=== PATIENT | female | born 1970 | race Caucasian/White ===

== ENCOUNTER 2016-11-29 19:15 | Inpatient (IN) ==
[2016-11-29] MEDS ORDERED: 0.9 % Sodium Chloride 1,000 ML IVC ONE ×2 (19:40→20:42)
[2016-11-29] MEDS ORDERED: Pantoprazole 40 MG VIAL IVP ONE (19:40)
[2016-11-29] MEDS ORDERED: *HR* Morphine 2 MG/ML SYRINGE IVP ONE (19:40)
[2016-11-29] MEDS ORDERED: Ondansetron 4 MG/2 ML VIAL IVP ONE (19:40)
--- NOTE | 2016-11-29 19:43 | Emergency Department Note ---
Disposition Clinical Impression: Colitis, GI bleed due to NSAIDs, Hypokalemia Disposition: Admitted As Inpatient Condition: Fair Referrals: Unassigned,Provider [Non-Partnered Physician] - Forms: Work/School Release, ED Satisfaction Letter Time of Disposition: 21:29 Abdominal Pain HPI - General Chief Complaint: ED General Medical Stated Complaint: "sick" Time Seen by Provider: 11/29/16 19:23 Source: patient Limitations: no limitations Nursing Notes Reviewed: Yes Vital Signs Reviewed: Yes - History of Present Illness HPI Narrative: 46yof c/o abd pain and n/v for 1 week also with BRBPR and has been taking increased NSAIDS lately meloxicam for arthritis. Patient states that she has 4 out of 10 cramping pain in her lower abdomen. She denies surgical history besides a section, states that she has no history of IBD or IBS. Patient states that after taking NSAIDs for the last week she has noted more red blood in her stool, and multiple episodes of loose stools including 11 movements today with loose stool. Patient denies any chest pain or shortness of breath, denies weight changes. Pt Subjective Complaint: abdominal pain Onset (ago): hour(s) Consistency: constant Location: periumbilical, LLQ, RLQ Pain Severity: moderate Pain Scale: 6 Quality: aching Radiation: none Migration to: no migration Worsens with: nothing Associated symptoms: Reports: nausea, diarrhea, hematochezia (BRBPR). Denies: fever, melena, hematuria Treatments prior to arrival: none - Related Data Allergies Allergy/AdvReac Type Severity Reaction Status Date / Time codeine Allergy See Verified 11/29/16 19:17 Comments meloxicam Allergy See Verified 11/29/16 19:17 Comments All systems ED: reviewed and negative except as stated. Review of Systems: As Per HPI Constitutional: Denies: fever, chills Eyes: Denies: eye pain ENT ED: Denies: ear pain Cardiovascular: Denies: chest pain Respiratory: Denies: cough Gastrointestinal: Reports: as per HPI, abdominal pain, nausea, hematochezia. Denies: vomiting Genitourinary: Denies: urgency Musculoskeletal: Denies: back pain Integumentary: Denies: rash Neurological: Denies: headache Psychiatric: Reports: anxiety Abdominal Pain PMH - Past Medical History Medical history: Reports: other Female Surgical History: Reports: Adenoidectomy, Tonsillectomy, other Psychiatric history: Reports: no psych history - Social History Smoking status: Never smoker Alcohol use: Reports: none Drug use: Reports: none Physical Exam Constitutional: NAD, vital signs reviewed and wnl Eyes: PERRLA, sclera anicteric Neck: normal inspection, neck is supple Resp: CTA bilaterally, no resp distress CV: RRR, no m/g/r GI: normal inspection, soft, abd ttp moderate, suprapubic ttp no rebound or guarding Back: normal inspection, no tenderness to palpation Neuro: A&O3, CNII-XII grossly intact MSK: no gross deformities, normal ROM UE and LE Skin: on limited exam, skin intact with no rashes or lesions - General Limitations: no limitations General appearance: alert, in no apparent distress Course Course Narrative: 46yof with abd pain and n/v him a workup ordered with CT with IV contrast, basic lab work type and screen CBC BMP hepatic panel lipase. 2 L IVF normal saline. - Reevaluation(s) Reevaluation #1: CT scan shows evidence of diffuse colitis, infectious versus inflammatory, patient with mild tachycardia still will give additional liter of fluid, otherwise has no SIRS symptoms, for that reason blood cultures and lactate were not drawn, I did start her empirically on Flagyl and ciprofloxacin. Admitted to Dr. Catherine in stable condition. Time: 21:25 Vital Signs Temperature 98.2 F 11/29/16 19:18 Pulse Rate 138 11/29/16 19:18 Respiratory Rate 16 11/29/16 19:18 Blood Pressure 140/74 11/29/16 19:18 O2 Sat by Pulse Oximetry 99 11/29/16 19:18 Temperature 98.2 F 11/29/16 19:18 Pulse Rate 117 11/29/16 20:13 Respiratory Rate 18 11/29/16 20:13 Blood Pressure 113/61 11/29/16 20:13 O2 Sat by Pulse Oximetry 100 11/29/16 20:13 Oxygen Delivery Oxygen Delivery Room Air Abdominal Pain - MDM Narrative Medical decision making narrative: 46-year-old female with GI bleed, diffuse colitis, started empirically on antibiotics, admitted to medicine service for further workup. Stable at the time of ed disposition resting comfortably all questions answered Dr Catherine accepting. - Differential Diagnosis Differential Diagnosis: Likely: abdominal pain non-specific, diverticulitis, diverticulosis, gastroenteritis, pancreatitis - Medical Records Medical records reviewed: Yes I reviewed the patient's medical records. - Lab Data Lab results reviewed: Yes I reviewed the patient's lab results. Result diagrams: 11/29/16 19:49 11/29/16 19:49 Lab Results 11/29/16 11/29/16 11/29/16 Range/Units 19:44 19:49 19:49 WBC 10.4 (4.3-11.1) K/mcL RBC 4.70 (3.82-4.97) M/mcL Hgb 13.7 (11.5-15.4) g/dL Hct 40.3 (35.3-44.9) % MCV 85.7 (83.0-100.0) fL MCH 29.1 (28.0-33.3) pg MCHC 34.0 (31.6-35.5) g/dL RDW 11.9 (11.5-14.5) % Plt Count 326 (140-400) K/mcL MPV 10.8 (9.4-12.4) fL Immature Gran % 0.5 (0-4) % Seg Neutrophils % 66.7 % Lymphocytes % 18.2 % Monocytes % 10.5 % Eosinophils % 3.8 % Basophils % 0.3 % Neutrophils # 6.9 (1.6-8.9) K/mcL Lymphocytes # 1.9 (0.6-4.6) K/mcL Monocytes # 1.1 (0.0-1.3) K/mcL Eosinophils # 0.4 (0.0-0.6) K/mcL Basophils # 0.0 (0.0-0.2) K/mcL Sodium (136-145) mEq/L Potassium (3.5-4.5) mEq/L Chloride (98-109) mEq/L Carbon Dioxide (19-29) mEq/L BUN (7-20) mg/dL Creatinine (0.57-1.11) mg/dL Est GFR ( Amer) (> 60) Est GFR (Non-Af Amer) (> 60) BUN/Creatinine Ratio (6-26) Glucose (70-99) mg/dL Calculated Osmolality (280-300) Calcium (8.6-10.8) mg/dL Total Bilirubin (0.2-1.2) mg/dL Direct Bilirubin (0.0-0.5) mg/dL Indirect Bilirubin (0.0-1.2) mg/dL AST (5-34) Units/L ALT (0-55) Units/L Alkaline Phosphatase (38-126) Units/L Serum Total Protein (6.0-8.3) g/dL Albumin (3.5-5.0) g/dL Globulin (2.4-3.5) g/dL Albumin/Globulin Ratio (1.1-2.2) Amylase (25-125) Units/L Lipase (8-78) Units/L Urine Color Dark Yellow (Yellow) Urine Clarity Turbid A (Clear) Urine pH 6.5 (5.0-8.0) pH Units Ur Specific Howell 1.020 (1.010-1.025) Urine Protein 30 H (Neg-Trace) mg/dL Urine Glucose (UA) Normal (Normal) mg/dL Urine Ketones Trace H (Negative) mg/dL Urine Blood Moderate H (Negative) Urine Nitrite Negative (Negative) Urine Bilirubin Negative (Negative) Urine Urobilinogen Normal (Normal) mg/dL Ur Leukocyte Esterase Negative (Negative) Urine Microscopic RBC 3-5 H (0-3) per hpf Urine Microscopic WBC 5-15 H (0-3) per hpf Ur Squamous Epith Cells Many H (None-Few) per lpf Urine Bacteria Many H (None-Few) per hpf Hyaline Casts Few (None-Few) per lpf Urine Mucus Few (Few) Ur Culture Indicated? YES A (NO) Stool Occult Blood (Negative) Blood Type A NEGATIVE Antibody Screen NEGATIVE 11/29/16 11/29/16 Range/Units 19:49 19:50 WBC (4.3-11.1) K/mcL RBC (3.82-4.97) M/mcL Hgb (11.5-15.4) g/dL Hct (35.3-44.9) % MCV (83.0-100.0) fL MCH (28.0-33.3) pg MCHC (31.6-35.5) g/dL RDW (11.5-14.5) % Plt Count (140-400) K/mcL MPV (9.4-12.4) fL Immature Gran % (0-4) % Seg Neutrophils % % Lymphocytes % % Monocytes % % Eosinophils % % Basophils % % Neutrophils # (1.6-8.9) K/mcL Lymphocytes # (0.6-4.6) K/mcL Monocytes # (0.0-1.3) K/mcL Eosinophils # (0.0-0.6) K/mcL Basophils # (0.0-0.2) K/mcL Sodium 136 (136-145) mEq/L Potassium 3.2 L (3.5-4.5) mEq/L Chloride 101 (98-109) mEq/L Carbon Dioxide 27 (19-29) mEq/L BUN 6 L (7-20) mg/dL Creatinine 0.80 (0.57-1.11) mg/dL Est GFR ( Amer) > 60 (> 60) Est GFR (Non-Af Amer) > 60 (> 60) BUN/Creatinine Ratio 8 (6-26) Glucose 115 H (70-99) mg/dL Calculated Osmolality 281 (280-300) Calcium 8.7 (8.6-10.8) mg/dL Total Bilirubin 0.3 (0.2-1.2) mg/dL Direct Bilirubin 0.2 (0.0-0.5) mg/dL Indirect Bilirubin 0.1 (0.0-1.2) mg/dL AST 11 (5-34) Units/L ALT 12 (0-55) Units/L Alkaline Phosphatase 89 (38-126) Units/L Serum Total Protein 6.6 (6.0-8.3) g/dL Albumin 2.8 L (3.5-5.0) g/dL Globulin 3.8 H (2.4-3.5) g/dL Albumin/Globulin Ratio 0.7 L (1.1-2.2) Amylase 48 (25-125) Units/L Lipase 40 (8-78) Units/L Urine Color (Yellow) Urine Clarity (Clear) Urine pH (5.0-8.0) pH Units Ur Specific Howell (1.010-1.025) Urine Protein (Neg-Trace) mg/dL Urine Glucose (UA) (Normal) mg/dL Urine Ketones (Negative) mg/dL Urine Blood (Negative) Urine Nitrite (Negative) Urine Bilirubin (Negative) Urine Urobilinogen (Normal) mg/dL Ur Leukocyte Esterase (Negative) Urine Microscopic RBC (0-3) per hpf Urine Microscopic WBC (0-3) per hpf Ur Squamous Epith Cells (None-Few) per lpf Urine Bacteria (None-Few) per hpf Hyaline Casts (None-Few) per lpf Urine Mucus (Few) Ur Culture Indicated? (NO) Stool Occult Blood Positive A (Negative) Blood Type Antibody Screen - Radiology Data Radiology results reviewed: Yes I reviewed the patient's radiology results. Abdomen/Pelvis CT 11/29/16 19:40 IMPRESSION: 1. Diffuse circumferential wall thickening involving the entirety of the colon compatible with colitis. There is mild adjacent mesenteric stranding and small amount of simple free fluid within the abdomen. Differential considerations would include infectious, inflammatory, and ischemic causes. Findings appear somewhat similar to prior exam from 2015. 2. Mild nonspecific periportal edema. D/ / Ariel Rosa MD / Ariel Rosa MD Interpreting Provider: Ariel Rosa MD
[2016-11-29 19:53] LABS: Bilirubin,Urine Negative (Negative); Blood,Urine Moderate (Negative); Clarity,Urine Turbid (Clear); Color,Urine Dark Yellow (Yellow); Glucose,Urine (UA) Normal (Normal); Ketones,Urine Trace mg/dL (Negative); Leukocyte Esterase,Urine Negative (Negative); Nitrite,Urine Negative (Negative); PH,Urine 6.5 pH Units (5.0-8.0); Protein,Urine 30 mg/dL (Neg-Trace); Urobilinogen,Urine Normal (Normal)
[2016-11-29 19:55] LABS: Bacteria,Urine Many per hpf (None-Few); Squamous Epithelial Cell,Urine Many per lpf (None-Few)
[2016-11-29 19:56] LABS: Basophils % 0.3 %; Eosinophils # 0.4 K/mcL (0.0-0.6); Eosinophils % 3.8 %; Hematocrit 40.3 % (35.3-44.9); Hemoglobin 13.7 g/dL (11.5-15.4); Immature Granulocytes % 0.5 % (0-4); Lymphocytes # 1.9 K/mcL (0.6-4.6); Lymphocytes % 18.2 %; Mean Corpuscular Hemoglobin 29.1 pg (28.0-33.3); Mean Corpuscular Volume 85.7 fL (83.0-100.0); Mean Platelet Volume 10.8 fL (9.4-12.4); Monocytes # 1.1 K/mcL (0.0-1.3); Monocytes % 10.5 %; Neutrophils # 6.9 K/mcL (1.6-8.9); Platelet Count 326 K/mcL (140-400); Red Cell Distribution Width 11.9 % (11.5-14.5); Segmented Neutrophils % 66.7 %
[2016-11-29 20:06] LABS: Hyaline Casts,Urine Few per lpf (None-Few); Mucus,Urine Few (Few)
[2016-11-29 20:11] LABS: Alanine Aminotransferase 12 Units/L (0-55); Albumin 2.8 g/dL (3.5-5.0); Albumin/Globulin Ratio 0.7 (1.1-2.2); Alkaline Phosphatase 89 Units/L (38-126); Amylase 48 Units/L (25-125); Aspartate Amino Transferase 11 Units/L (5-34); BUN/Creatinine Ratio 8 (6-26); Bilirubin,Direct 0.2 mg/dL (0.0-0.5); Bilirubin,Indirect 0.1 mg/dL (0.0-1.2); Bilirubin,Total 0.3 mg/dL (0.2-1.2); Blood Urea Nitrogen 6 mg/dL (7-20); Calcium 8.7 mg/dL (8.6-10.8); Carbon Dioxide 27 mEq/L (19-29); Chloride 101 mEq/L (98-109); Globulin 3.8 g/dL (2.4-3.5); Glucose 115 mg/dL (70-99); Lipase 40 Units/L (8-78); Osmolality,Calculated 281 (280-300); Potassium 3.2 mEq/L (3.5-4.5); Sodium 136 mEq/L (136-145); Total Protein 6.6 g/dL (6.0-8.3); eGFR For African Americans > 60 (> 60); eGFR For Non-African Americans > 60 (> 60)
[2016-11-29] MEDS ORDERED: MetroNIDAZOLE 500 MG/100 ML 500 MG/100 ML BAG IVPB ONE (21:06)
--- NOTE | 2016-11-29 21:32 | Emergency Department Note ---
START Narrative - START START: I examined this patient and my medical decision-making was reviewed with the Resident Physician. I agree with the documented findings, disposition and treatment plan as described except to the extent set forth below. In summary 46 -year-old female presents with tachycardia and abdominal pain. She has diarrhea and nausea. There is concern for NSAID-induced gastritis and possible gastric ulcer given Hemoccult-positive stool. Hemoglobin is stable. She does have tachycardia which has responded to IV fluids. Protonix administered, we will start antibiotics for underlying possible colitis. Cipro and Flagyl were initiated. Patient be admitted to the hospital service for further evaluation and ongoing treatment for colitis in the setting of abdominal pain with tachycardia. Greater than 35 minutes of critical care time was spent resuscitating this acutely ill patient suffering from GI hemorrhage requiring multiple medications. This is excluding billable procedures.
[2016-11-29] MEDS ORDERED: Naloxone 0.4 MG/ML INJ IVP PRN (22:19)
[2016-11-29] MEDS ORDERED: *HR* Morphine 2 MG/ML SYRINGE IVP PRN (22:19)
--- NOTE | 2016-11-29 22:25 | Internal Med History&Physical ---
Date of Encounter: 11/29/16 Time of Encounter: 22:23 Assessment and Plan (1) Colitis Current visit: Yes Status: Acute Acute dehydration secondary to acute colitis, possibly infectious Emergency room ordered ciprofloxacin and Flagyl IV. Antibiotics will be held until we obtain the report of the GI panel. Nurse was instructed to start antibiotics only if negative for enterohemorrhagic Escherichia coli ( Risk of HUS). Stool sample was sent already after my examination NPO, IV fluids, morphine for pain CT scan shows diffuse colitis Protonix for GI prophylaxis and sequential compression devices for DVT prophylaxis. The patient will be admitted for observation. Full code. Time spent on this admission 40 minutes. High risk due to dehydration (2) Dehydration Current visit: Yes Status: Acute Secondary to acute colitis (3) Hematochezia Current visit: Yes Status: Acute Secondary to acute colitis exacerbated by meloxicam No signs of anemia. Monitor CBC (4) Osteoarthritis Current visit: Yes Status: Acute Qualifiers: Osteoarthritis location: unspecified site Osteoarthritis type: unspecified Qualified Code(s): M19.90 - Unspecified osteoarthritis, unspecified site (5) POTS (postural orthostatic tachycardia syndrome) Current visit: Yes Status: Acute May continue atenolol (6) Hypokalemia Current visit: Yes Status: Acute Replete as needed Internal Medicine - H&P: HPI Chief complaint: Diarrhea Admitted From: Emergency Dept History of present illness: Ms. Akbar is a 46 year old female with a past medical history of by POTS, osteoarthritis, comes to the emergency room complaining of one week of abdominal pain and diarrhea. She says that she has been having some bright red blood per rectum at times, her hemoglobin is stable at 13.7. She is very dehydrated and has had more than 10 loose bowel movements since yesterday. Potassium is 3.2 white blood cell count 10.4 heart rates 138 UA shows 15 white blood cells and many bacteria. CT scan shows diffuse colitis and mesenteric stranding. Denies any sick contacts or recent traveling. Emergency room orders ciprofloxacin and Flagyl IV. Antibiotics will be held until we obtain the report of the GI panel. Nurse was instructed to start antibiotics only if negative for enterohemorrhagic Escherichia coli. Denies any other complaint other than cramping 8 out of 10 in intensity on and off. No recent history of antibiotics Past Med Surg Social Fam HX - Past Medical History Medical history: other (POTS, osteoarthritis) Psychiatric history: no psych history - Past Surgical History Surgical History: , other (Tonsillectomy) - Social History Smoking Status: Never smoker Smokeless Tobacco Status: No Alcohol use: none Drug use: none - Additional Family History Additional family history: Denies any family medical history Internal Medicine - H&P: Meds Allergies codeine Allergy (Verified 11/29/16 19:17) See Comments meloxicam Allergy (Verified 11/29/16 19:17) See Comments All Systems PM: A 10-system review of systems was performed and is negative for pertinent findings except as documented above in the HPI. Review of systems: Dehydrated, complains of abdominal pain, nausea. Other systems out of the 10 review of her negative - Constitutional Vitals: Temp Pulse Resp BP Pulse Ox 98.2 F 120 0 0/0 98 11/29/16 19:18 11/29/16 22:03 11/29/16 22:12 11/29/16 22:12 11/29/16 22:03 General appearance: Present: A&O X 3 - Head Head exam: Present: atraumatic, normocephalic - Eye Eye exam: Present: PERRL, conjuntiva pink, sclera anicteric Pupils: Present: PERRL - Neck Neck exam general surgery: Present: supple, trachea midline. Absent: lymphadenopathy Additional comments: Dry mucosa - Respiratory Respiratory exam: Present: CTAB. Absent: accessory muscle use, rales, rhonchi, wheezes - Cardiovascular Cardiovascular exam: Present: RRR, +S1, +S2. Absent: diastolic murmur, gallop, rubs, systolic murmur - GI/Abdominal GI/Abdominal exam: Present: normal bowel sounds, soft, tenderness (Diffuse tenderness no rebound), no peritoneal signs. Absent: distended, rebound - Extremities Exam Extremities exam: Present: warm, radial pulses palpable and symetrical. Absent : calf tenderness, cyanotic, pedal edema - Neurological Exam Neurological exam: Present: CN II-XII intact, oriented X3, no focal deficits. Absent: pronater drift, facial droop, speech deficit - Skin Skin exam: Present: dry, intact Internal Med - H&P Results - Labs CBC & Chem 7: 11/29/16 19:49 11/29/16 19:49
[2016-11-29] MEDS: Ringers Solution, Lactated 1,000 ML IVC SCH (22:46)
[2016-11-29 23:30] LABS: C.difficile Toxin A/B by PCR Not detected (Not detect); Campylobacter by PCR Not detected (Not detect); Plesiomonas shigelloides PCR Not detected (Not detect); Salmonella PCR Not detected (Not detect); Vibrio PCR Not detected (Not detect); Vibrio cholerae PCR Not detected (Not detect)
[2016-11-29 23:31] LABS: Adenovirus F 40/41 PCR Not detected (Not detect); Astrovirus PCR Not detected (Not detect); Cryptosporidium by PCR Not detected (Not detect); Cyclospora cayetanensis PCR Not detected (Not detect); E. coli O157 by PCR Not detected (Not detect); Entamoeba histolytica PCR Not detected (Not detect); Enteroaggregative E.coli(EAEC) Not detected (Not detect); Enteropathogenic E.coli(EPEC) Not detected (Not detect); Enterotoxigenic E.coli (ETEC) Not detected (Not detect); Giardia lamblia PCR Not detected (Not detect); Norovirus GI/GII PCR Not detected (Not detect); Rotavirus A PCR Not detected (Not detect); Sapovirus PCR Not detected (Not detect); Shig/EnteroinvasiveE coli EIEC Not detected (Not detect); Shigalike tox-prod E coli STEC Not detected (Not detect); Yersinia enterocolitica PCR Not detected (Not detect)
[2016-11-30 04:14] LABS: Hematocrit 35.8 % (35.3-44.9); Mean Corpuscular Hemoglobin 28.8 pg (28.0-33.3); Mean Corpuscular Volume 87.3 fL (83.0-100.0); Mean Platelet Volume 11.2 fL (9.4-12.4); Platelet Count 291 K/mcL (140-400)
[2016-11-30 04:31] LABS: BUN/Creatinine Ratio 5 (6-26); Calcium 7.7 mg/dL (8.6-10.8); Carbon Dioxide 27 mEq/L (19-29); Chloride 103 mEq/L (98-109); Glucose 119 mg/dL (70-99); Osmolality,Calculated 278 (280-300); Potassium 3.8 mEq/L (3.5-4.5); Sodium 135 mEq/L (136-145); eGFR For African Americans > 60 (> 60); eGFR For Non-African Americans > 60 (> 60)
[2016-11-30 04:32] LABS: Blood Urea Nitrogen 4 mg/dL (7-20)
[2016-11-30 04:52] LABS: Hemoglobin 11.8 g/dL (11.5-15.4)
[2016-11-30 05:07] LABS: Neutrophils # 7.9 K/mcL (1.6-8.9); Platelet Estimate Normal (Normal)
[2016-11-30] MEDS: MetroNIDAZOLE 500 MG/100 ML 500 MG/100 ML BAG IVPB SCH ×3 (05:40→21:41)
[2016-11-30] MEDS: Ringers Solution, Lactated 1,000 ML IVC SCH ×3 (05:40→22:45)
[2016-11-30] MEDS ORDERED: Acetaminophen 325 MG TABLET PO ONE (06:20)
[2016-11-30] MEDS: Pantoprazole 40 MG VIAL IVP SCH (09:20)
[2016-11-30] MEDS ORDERED: *HR* HYDROmorphone (PF) 1 MG/ML SYRINGE IVP PRN (12:37)
--- NOTE | 2016-11-30 14:22 | Internal Med Progress Note ---
Date of Encounter: 11/30/16 Time of Encounter: 09:50 - Assessment and plan (1) Colitis Current Visit: Yes Status: Acute Assessment and plan: Abdominal pain and diarrhea - secondary to Acute Colitis, probably infectious Continue IV fluids, IV Flagyl, IV ciprofloxacin IV Protonix, IV Zofran, IV Dilaudid as needed for pain Fecal Hemoccult - positive CT abdomen and pelvis diffuse circumferential wall thickening involving the entire colon, mild mesenteric stranding and mild nonspecific periportal edema Stool study - negative WBC - 10.1 UA - negative for leukocyte esterase and negative for nitrite Gastroenterology consult for GI bleed Continue supportive care, labs in a.m. (2) GI bleed due to NSAIDs Current Visit: Yes Status: Acute Assessment and plan: Initially had bright red blood per rectum - likely due to acute colitis exacerbated by meloxicam use H&H stable at 11.8 and 35.8, no active bleeding at present Fecal Hemoccult - positive Gastroenterology consult for GI bleed Repeat CBC in a.m. (3) Osteoarthritis Current Visit: Yes Status: Chronic Qualifiers: Osteoarthritis location: unspecified site Osteoarthritis type: unspecified Qualified Code(s): M19.90 - Unspecified osteoarthritis, unspecified site (4) POTS (postural orthostatic tachycardia syndrome) Current Visit: Yes Status: Chronic Assessment and plan: Continue atenolol if blood pressure permits - Time Spent With Patient 25 - 35 minutes - Subjective Interval history: Eczematous morning. Patient is awake and alert. Not in any distress. She continues to have lower abdominal pain which is cramping. She states it is slightly better. Patient also continues to have diarrhea. No blood in stool. Patient had fever early this morning. Hemodynamically stable. Continue IV antibiotics. Admitted for acute infectious colitis. No other acute events or complaints. - Constitutional Vitals: Temp Pulse Resp BP Pulse Ox 98.3 F 75 16 114/67 98 11/30/16 10:51 11/30/16 10:51 11/30/16 10:51 11/30/16 10:51 11/30/16 10:51 General appearance: Present: A&O X 3, pleasant, no acute distress, answers questions appropriately - Head Head exam: Present: atraumatic - Eye Eye exam: Present: EOMI - ENT ENT exam: Present: mucous membranes dry - Neck Neck exam general surgery: Present: supple - Respiratory Respiratory exam: Present: CTAB. Absent: rales, rhonchi, stridor, wheezes, tachypnea - Cardiovascular Cardiovascular exam: Present: RRR, +S1, +S2 - GI/Abdominal GI/Abdominal exam: Present: soft, tenderness (Mild epigastric, umbilical and left lower quadrant tenderness). Absent: distended, firm, guarding, rigid - Extremities Exam Extremities exam: Present: radial pulses palpable and symetrical. Absent: cyanotic, pedal edema, tenderness - Neurological Exam Neurological exam: Present: alert, oriented X3, no focal deficits Internal Medicine: Result - Labs CBC & Chem 7: 11/30/16 03:37 11/30/16 03:37 Consult Discharge Plan - Plan Referrals: Hira Stauffer MD [Primary Care Provider] -
[2016-11-30] MEDS: Ondansetron 4 MG/2 ML VIAL IVP PRN (19:57)
[2016-12-01 01:52] LABS: Basophils % 0.2 %; Eosinophils # 0.4 K/mcL (0.0-0.6); Eosinophils % 3.8 %; Hematocrit 32.4 % (35.3-44.9); Immature Granulocytes % 0.5 % (0-4); Lymphocytes # 1.2 K/mcL (0.6-4.6); Lymphocytes % 12.1 %; Mean Corpuscular Hemoglobin 29.3 pg (28.0-33.3); Mean Corpuscular Volume 86.2 fL (83.0-100.0); Mean Platelet Volume 11.1 fL (9.4-12.4); Monocytes # 0.9 K/mcL (0.0-1.3); Monocytes % 9.2 %; Neutrophils # 7.5 K/mcL (1.6-8.9); Platelet Count 223 K/mcL (140-400); Red Blood Count 3.76 M/mcL (3.82-4.97); Red Cell Distribution Width 12.1 % (11.5-14.5); Segmented Neutrophils % 74.2 %
[2016-12-01 02:01] LABS: BUN/Creatinine Ratio 6 (6-26); Calcium 7.7 mg/dL (8.6-10.8); Carbon Dioxide 25 mEq/L (19-29); Chloride 104 mEq/L (98-109); Glucose 105 mg/dL (70-99); Osmolality,Calculated 279 (280-300); Potassium 3.5 mEq/L (3.5-4.5); Sodium 136 mEq/L (136-145); eGFR For African Americans > 60 (> 60); eGFR For Non-African Americans > 60 (> 60)
[2016-12-01 02:02] LABS: Blood Urea Nitrogen 4 mg/dL (7-20)
[2016-12-01] MEDS: Ringers Solution, Lactated 1,000 ML IVC SCH ×3 (05:08→19:54)
[2016-12-01] MEDS: MetroNIDAZOLE 500 MG/100 ML 500 MG/100 ML BAG IVPB SCH ×3 (05:09→22:07)
[2016-12-01] MEDS: Acetaminophen 325 MG TABLET PO PRN (08:01)
[2016-12-01] MEDS: Pantoprazole 40 MG VIAL IVP SCH (08:02)
--- NOTE | 2016-12-01 12:00 | Gastroenterology Consult Note ---
<HowellAri santos Isatu - Last Filed: 12/01/16 11:57> Date of Encounter: 12/01/16 Time of Encounter: 11:00 - Assessment and plan (1) Colitis Current Visit: Yes Status: Acute Assessment and plan: CT A/P shows diffuse colitis and mesenteric stranding. This could be due to infectious colitis. Continue Cipro and Flagyl. (2) GI bleed Current Visit: Yes Status: Acute Assessment and plan: Likely secondary to infectious colitis. Likely worsened with chronic meloxicam use. Continue Cipro and Flagyl. Plan for colonoscopy 4-6 weeks as outpatient. Qualifiers: Qualified Code(s): K92.2 - Gastrointestinal hemorrhage, unspecified - Time Spent With Patient Total time spent is greater than 50% in coordination of care (as documented) at patient's floor/unit and/or counseling patient: GI History of Present Illness - Data of Consult Patient: new to practice Consult date: 12/01/16 Requesting Physician: Isaias Arciniega - Consult Narrative Reason for consult: Lower GI bleeding History of present illness: Ms. Akbar is a 46 year old female with PMHx of POTS and osteoarthritis presented to the ED with c/o abdominal pain, diarrhea, and occasional BRBPR. Hgb on admission was 13.7 and this AM Hgb 11. She reports more than 10 loose BMs the day prior to admission. CT A/P shows diffuse colitis and mesenteric stranding. She was started on Cipro and Flagyl in the ED. GI panel was negative, FOBT positive. Procedure: None NSAIDs: Meloxicam Anticoagulation: None Past Med Surg Social Fam HX - Past Medical History Medical history: other Psychiatric history: no psych history - Past Surgical History Surgical History: , other - Social History Smoking Status: Never smoker Smokeless Tobacco Status: No Alcohol use: none Drug use: none - Family History Father Hx Family Endocrine Disorder: Yes (DM) Mother Hx Family Respiratory Disorders: Yes - Gastrointestinal Gastrointestinal: Present: as per HPI - EENT Eyes: as per HPI Ears: Present: as per HPI Nose, mouth and throat: Present: as per HPI - Cardiovascular Cardiovascular ROS: Present: as per HPI - Respiratory Respiratory IM: Present: as per HPI - Genitourinary Genitourinary: Absent: change in color, Urinary frequency - Neurological ROS Neurological GI: Absent: as per HPI - Hematologic/Lymphatic Hematologic/Lymphatic pediatric: Absent: as per HPI - Musculoskeletal Musculoskeletal ROS GI: Absent: as per HPI - Integumentary Integumentary GI: Present: as per HPI - Psychiatric ROS Psychiatric GI: Present: as per HPI - Endocrine Endocrine IM: Present: as per HPI - Constitutional Vitals: Temp Pulse Resp BP Pulse Ox 97.5 F L 76 16 99/65 99 12/01/16 11:09 12/01/16 11:09 12/01/16 11:09 12/01/16 11:09 12/01/16 11:09 General appearance: Present: cooperative, A&O X 3, no acute distress, answers questions appropriately - Head Head exam: Present: atraumatic, normocephalic - Eye Eye exam: Present: normal appearance, sclera anicteric - ENT ENT exam: Present: normal exam - Neck Neck exam general surgery: Present: normal inspection, trachea midline - Respiratory Respiratory exam: Present: CTAB. Absent: rales, rhonchi - Cardiovascular Cardiovascular exam: Present: RRR, +S1, +S2 - GI/Abdominal GI/Abdominal exam: Present: soft, tenderness (LLQ, umbilical), no peritoneal signs. Absent: distended, firm, guarding - Rectal Rectal exam: Present: deferred - Extremities Exam Extremities exam: Present: warm - Neurological Exam Neurological exam: Present: no focal deficits - Psychiatric Psychiatric exam: Present: normal affect, normal mood - Skin Skin exam: Present: dry, intact, normal color, warm Results - Labs CBC & Chem 7: 12/01/16 01:24 12/01/16 01:24 Labs: Last Result Calcium 7.7 mg/dL (8.6-10.8) L 12/01/16 01:24 Stool Occult Blood Positive (Negative) A 11/29/16 19:50 Entire Visit Hgb 11.0 g/dL (11.5-15.4) L 12/01/16 01:24 Hct 32.4 % (35.3-44.9) L 12/01/16 01:24 Total Bilirubin 0.3 mg/dL (0.2-1.2) 11/29/16 19:49 AST 11 Units/L (5-34) 11/29/16 19:49 ALT 12 Units/L (0-55) 11/29/16 19:49 Amylase 48 Units/L (25-125) 11/29/16 19:49 Lipase 40 Units/L (8-78) 11/29/16 19:49 Consult Discharge Plan - Plan Referrals: Hira Stauffer MD [Primary Care Provider] - <Mathieu Pedro - Last Filed: 12/01/16 14:59> Date of Encounter: 12/01/16 Time of Encounter: 13:00 - Time Spent With Patient Total time spent is greater than 50% in coordination of care (as documented) at patient's floor/unit and/or counseling patient: GI History of Present Illness - Data of Consult Requesting Physician: Isaias Arciniega - Consult Narrative History of present illness: Ms. Akbar is a 46 year old female - Constitutional Vitals: Temp Pulse Resp BP Pulse Ox 97.5 F L 76 16 99/65 99 12/01/16 11:09 12/01/16 11:09 12/01/16 11:09 12/01/16 11:09 12/01/16 11:09 Results - Labs CBC & Chem 7: 12/01/16 01:24 12/01/16 01:24 Labs: Last Result Calcium 7.7 mg/dL (8.6-10.8) L 12/01/16 01:24 Stool Occult Blood Positive (Negative) A 11/29/16 19:50 Entire Visit Hgb 11.0 g/dL (11.5-15.4) L 12/01/16 01:24 Hct 32.4 % (35.3-44.9) L 12/01/16 01:24 Total Bilirubin 0.3 mg/dL (0.2-1.2) 11/29/16 19:49 AST 11 Units/L (5-34) 11/29/16 19:49 ALT 12 Units/L (0-55) 11/29/16 19:49 Amylase 48 Units/L (25-125) 11/29/16 19:49 Lipase 40 Units/L (8-78) 11/29/16 19:49 - Attending Attestation I examined this patient and my medical decision-making was reviewed with the Resident Physician. I agree with the documented findings, disposition and treatment plan as described except to the extent set forth below. Patient with diffuse colitis had an episode of colitis couple of years ago. Does has family history of colon polyps. Stool w/u NEGATIVE. Symptoms are doing better with this antibiotics. Patient will have a colonoscopy done in 4- 6 weeks to make sure there is no other underlying reason for her recurrent colitis
[2016-12-01] MEDS ORDERED: *HR* HYDROmorphone (PF) 1 MG/ML SYRINGE IVP PRN (12:06)
[2016-12-01] MEDS: 0.9 % Sodium Chloride 1,000 ML IVC SCH (13:19)
[2016-12-01] MEDS: Ondansetron 4 MG/2 ML VIAL IVP PRN (14:49)
--- NOTE | 2016-12-01 18:00 | Internal Med Progress Note ---
Date of Encounter: 12/01/16 Time of Encounter: 09:55 - Assessment and plan (1) Colitis Current Visit: Yes Status: Acute Assessment and plan: Abdominal pain and diarrhea - secondary to Acute Colitis, probably infectious - improving slowly Continue IV fluids, IV Flagyl, IV ciprofloxacin IV Protonix, IV Zofran, IV Dilaudid as needed for pain Fecal Hemoccult - positive CT abdomen and pelvis diffuse circumferential wall thickening involving the entire colon, mild mesenteric stranding and mild nonspecific periportal edema Stool study - negative C. difficile toxin - negative WBC - 10.1 UA - negative for leukocyte esterase and negative for nitrite Gastroenterology consult for GI bleed - recommendations reviewed, colonoscopy in 4-6 weeks Continue supportive care, labs in a.m. (2) GI bleed due to NSAIDs Current Visit: Yes Status: Acute Assessment and plan: Initially had bright red blood per rectum - likely due to acute colitis exacerbated by meloxicam use H&H stable at 11.0 and 32.4, no active bleeding at present Fecal Hemoccult - positive Gastroenterology consult for GI bleed - colonoscopy in 4-6 weeks Repeat CBC in a.m. (3) Osteoarthritis Current Visit: Yes Status: Chronic Qualifiers: Osteoarthritis location: unspecified site Osteoarthritis type: unspecified Qualified Code(s): M19.90 - Unspecified osteoarthritis, unspecified site (4) POTS (postural orthostatic tachycardia syndrome) Current Visit: Yes Status: Chronic Assessment and plan: Continue atenolol if blood pressure permits - Time Spent With Patient 25 - 35 minutes - Subjective Interval history: Examined this morning. Patient is awake and alert. Not in any distress. Abdominal pain improving slowly. Diarrhea improving. No blood in stool. Patient had fever early this morning. Hemodynamically stable. Continue IV antibiotics. Admitted for acute infectious colitis. No other acute events or complaints. - Constitutional Vitals: Temp Pulse Resp BP Pulse Ox 97.4 F L 79 14 114/64 98 12/01/16 15:36 12/01/16 15:36 12/01/16 15:36 12/01/16 15:36 12/01/16 15:36 General appearance: Present: A&O X 3, pleasant, no acute distress, answers questions appropriately - Head Head exam: Present: atraumatic - Eye Eye exam: Present: EOMI - ENT ENT exam: Present: mucous membranes moist - Neck Neck exam general surgery: Present: supple - Respiratory Respiratory exam: Present: CTAB. Absent: rales, rhonchi, wheezes, tachypnea - Cardiovascular Cardiovascular exam: Present: RRR, +S1, +S2 - GI/Abdominal GI/Abdominal exam: Present: soft, tenderness (mild epigastric and LLQ tenderness ). Absent: distended, firm, guarding, rigid - Extremities Exam Extremities exam: Present: radial pulses palpable and symetrical. Absent: cyanotic, pedal edema - Neurological Exam Neurological exam: Present: alert, oriented X3, no focal deficits Internal Medicine: Result - Labs CBC & Chem 7: 12/01/16 01:24 12/01/16 01:24 Labs: Short CBC 12/01/16 Range/Units 01:24 WBC 10.1 (4.3-11.1) K/mcL Hgb 11.0 L (11.5-15.4) g/dL Hct 32.4 L (35.3-44.9) % Plt Count 223 (140-400) K/mcL Neutrophils # 7.5 (1.6-8.9) K/mcL BMP 12/01/16 01:24 Sodium 136 Potassium 3.5 Chloride 104 Carbon Dioxide 25 BUN 4 L Creatinine 0.69 Glucose 105 H Calcium 7.7 L - VTE Documentation of Mechanical Device: Intermittent pneumatic compression device Consult Discharge Plan - Plan Referrals: Hira Stauffer MD [Primary Care Provider] -
[2016-12-02] MEDS: Acetaminophen 325 MG TABLET PO PRN (03:31)
[2016-12-02] MEDS: 0.9 % Sodium Chloride 1,000 ML IVC SCH ×3 (03:32→19:47)
[2016-12-02 04:41] LABS: Basophils % 0.4 %; Eosinophils # 0.4 K/mcL (0.0-0.6); Eosinophils % 5.6 %; Hematocrit 32.4 % (35.3-44.9); Immature Granulocytes % 0.7 % (0-4); Lymphocytes # 0.8 K/mcL (0.6-4.6); Lymphocytes % 11.3 %; Mean Corpuscular Hemoglobin 29.1 pg (28.0-33.3); Mean Corpuscular Volume 85.7 fL (83.0-100.0); Mean Platelet Volume 11.1 fL (9.4-12.4); Monocytes # 0.6 K/mcL (0.0-1.3); Monocytes % 7.6 %; Neutrophils # 5.4 K/mcL (1.6-8.9); Platelet Count 238 K/mcL (140-400); Red Blood Count 3.78 M/mcL (3.82-4.97); Red Cell Distribution Width 12.2 % (11.5-14.5); Segmented Neutrophils % 74.4 %
[2016-12-02] MEDS: MetroNIDAZOLE 500 MG/100 ML 500 MG/100 ML BAG IVPB SCH ×3 (05:49→23:19)
[2016-12-02] MEDS ORDERED: *HR* OxyCODONE/APAP 5/325 TABLET PO PRN (07:53)
[2016-12-02] MEDS: Ondansetron 4 MG/2 ML VIAL IVP PRN ×2 (08:16→14:58)
[2016-12-02] MEDS: Pantoprazole 40 MG VIAL IVP SCH (08:17)
--- NOTE | 2016-12-02 14:31 | Internal Med Progress Note ---
Date of Encounter: 12/02/16 Time of Encounter: 09:40 - Assessment and plan (1) Colitis Current Visit: Yes Status: Acute Assessment and plan: Treating empirically with IV antibiotics. Stool studies have been negative for bacteria. Occult blood was positive. We will complete treatment course with ciprofloxacin and Flagyl. Continue clear liquid diet as tolerated and advance slowly. (2) GI bleed due to NSAIDs Current Visit: Yes Status: Acute Assessment and plan: Patient had another episode of lower GI bleed today. Will continue to monitor blood counts. Evaluated by GI and recommended colonoscopy in 4-6 weeks as outpatient. Plan on discharge tomorrow if hemoglobin levels remained stable. Moderate risk for complications. (3) Osteoarthritis Current Visit: Yes Status: Chronic Assessment and plan: On Tylenol as needed for pain. We will stop IV narcotic medications. Place patient on Percocet for moderate pain Qualifiers: Osteoarthritis location: unspecified site Osteoarthritis type: unspecified Qualified Code(s): M19.90 - Unspecified osteoarthritis, unspecified site (4) POTS (postural orthostatic tachycardia syndrome) Current Visit: Yes Status: Chronic Assessment and plan: Continue atenolol - Subjective Interval history: Patient is awake and alert. Had another episode of GI bleed this morning. Tolerating oral clear liquid diet. Abdominal pain is improving. - Constitutional Vitals: Temp Pulse Resp BP Pulse Ox 97.4 F L 82 16 94/61 96 12/02/16 10:08 12/02/16 10:08 12/02/16 10:08 12/02/16 10:08 12/02/16 10:08 General appearance: Present: A&O X 3, pleasant, no acute distress, answers questions appropriately - Neck Neck exam general surgery: Present: supple, trachea midline. Absent: lymphadenopathy - Cardiovascular Cardiovascular exam: Present: RRR, +S1, +S2. Absent: diastolic murmur, gallop, rubs, systolic murmur - GI/Abdominal GI/Abdominal exam: Present: normal bowel sounds, soft, tenderness (Mild left lower quadrant), no peritoneal signs. Absent: distended - Extremities Exam Extremities exam: Present: warm, radial pulses palpable and symetrical. Absent : calf tenderness, cyanotic, pedal edema - Neurological Exam Neurological exam: Present: alert, oriented X3, no focal deficits, strengths equal and symetr throughout. Absent: facial droop, speech deficit - Skin Skin exam: Present: dry, intact Internal Medicine: Result - Labs CBC & Chem 7: 12/02/16 04:04 12/01/16 01:24 Labs: Short CBC 12/02/16 Range/Units 04:04 WBC 7.3 (4.3-11.1) K/mcL Hgb 11.0 L (11.5-15.4) g/dL Hct 32.4 L (35.3-44.9) % Plt Count 238 (140-400) K/mcL Neutrophils # 5.4 (1.6-8.9) K/mcL - VTE Documentation of Mechanical Device: Intermittent pneumatic compression device Consult Discharge Plan - Plan Referrals: Hira Stauffer MD [Primary Care Provider] -
[2016-12-02 15:02] LABS: Hematocrit 34.1 % (35.3-44.9); Hemoglobin 11.5 g/dL (11.5-15.4)
[2016-12-02] MEDS ORDERED: *HR* Promethazine 25 MG/ML VIAL IVP PRN (20:02)
[2016-12-02 20:41] LABS: Hemoglobin 11.1 g/dL (11.5-15.4)
[2016-12-03] MEDS: Ondansetron 4 MG/2 ML VIAL IVP PRN (04:19)
[2016-12-03] MEDS: MetroNIDAZOLE 500 MG/100 ML 500 MG/100 ML BAG IVPB SCH ×2 (05:41→13:54)
[2016-12-03 06:44] LABS: Basophils % 0.3 %; Eosinophils # 0.4 K/mcL (0.0-0.6); Eosinophils % 5.3 %; Hematocrit 32.4 % (35.3-44.9); Hemoglobin 10.9 g/dL (11.5-15.4); Immature Granulocytes % 0.9 % (0-4); Lymphocytes # 1.1 K/mcL (0.6-4.6); Lymphocytes % 15.8 %; Mean Corpuscular HGB Conc 33.6 g/dL (31.6-35.5); Mean Corpuscular Volume 86.2 fL (83.0-100.0); Mean Platelet Volume 11.1 fL (9.4-12.4); Monocytes # 0.6 K/mcL (0.0-1.3); Monocytes % 8.4 %; Neutrophils # 4.9 K/mcL (1.6-8.9); Platelet Count 260 K/mcL (140-400); Red Blood Count 3.76 M/mcL (3.82-4.97); Red Cell Distribution Width 12.4 % (11.5-14.5); Segmented Neutrophils % 69.3 %
[2016-12-03 07:01] LABS: BUN/Creatinine Ratio 3 (6-26); Carbon Dioxide 24 mEq/L (19-29); Chloride 107 mEq/L (98-109); Potassium 3.1 mEq/L (3.5-4.5); Sodium 139 mEq/L (136-145)
[2016-12-03 07:02] LABS: Blood Urea Nitrogen 2 mg/dL (7-20); Calcium 7.3 mg/dL (8.6-10.8); Glucose 89 mg/dL (70-99); Osmolality,Calculated 284 (280-300); eGFR For African Americans > 60 (> 60); eGFR For Non-African Americans > 60 (> 60)
[2016-12-03] MEDS: Pantoprazole 40 MG VIAL IVP SCH (08:25)
[2016-12-03 11:56] VITALS: BP 122/84
--- NOTE | 2016-12-03 13:53 | Discharge Summary ---
Date of Encounter: 12/03/16 Time of Encounter: 08:40 - Discharge Diagnosis (1) Colitis Priority: Primary Status: Acute (2) GI bleed due to NSAIDs Priority: Secondary Status: Acute (3) Osteoarthritis Priority: Secondary Status: Chronic Qualifiers: Osteoarthritis location: unspecified site Osteoarthritis type: unspecified Qualified Code(s): M19.90 - Unspecified osteoarthritis, unspecified site (4) POTS (postural orthostatic tachycardia syndrome) Priority: Secondary Status: Chronic - Discharge Medications Prescriptions: Loperamide [Imodium] 2 mg PO Q4HR PRN #15 tab PRN Reason: Diarrhea Metoclopramide [Reglan] 10 mg PO Q6HR PRN #20 tablet PRN Reason: Nausea Ciprofloxacin [Cipro] 500 mg PO BID #20 tablet metroNIDAZOLE [Flagyl] 500 mg PO TID #30 tablet Omeprazole [PriLOSEC] 20 mg PO DAILY@0730 #30 cap Home Medications: Atenolol 100 mg PO DAILY 11/29/16 [History] Acetaminophen [Tylenol] 650 mg PO Q6HR PRN tab 12/03/16 [Rx] Ciprofloxacin [Cipro] 500 mg PO BID #20 tablet 12/03/16 [Rx] Loperamide [Imodium] 2 mg PO Q4HR PRN #15 tab 12/03/16 [Rx] Metoclopramide [Reglan] 10 mg PO Q6HR PRN #20 tablet 12/03/16 [Rx] Omeprazole [PriLOSEC] 20 mg PO DAILY@0730 #30 cap 12/03/16 [Rx] metroNIDAZOLE [Flagyl] 500 mg PO TID #30 tablet 12/03/16 [Rx] Allergies/Adverse Reactions: Allergies codeine Allergy (Verified 11/30/16 11:42) See Comments Unknown Reaction meloxicam Allergy (Verified 11/30/16 11:42) See Comments Unknown Reaction Date of admission: 11/30/16 05:22 Primary care physician: Hira Stauffer MD Consults: 11/30/16 14:33 Consult to Gastroenterology [CONS] Routine Consulting Provider: Perlaology Paige Reason for Consult: Lower GI bleed, acute colitis Call Completed: No Discharging clinician: Shahnaz Wilks Anticipated date of discharge: 12/03/16 - Patient Status Disposition: Home, Self-Care Condition: Good Functional capacity at discharge: independent ambulation Overall status at discharge: patient is progressing back to baseline - Discharge Instructions Follow Up With: Hira Stauffer MD [Primary Care Provider] - (In 1-2 weeks) Mathieu Pedro MD [Partnered Physician] - (In 3-4 weeks for GI bleed) - Diet and Activity Activity: return to work once cleared by your PCP/specialist (12/09/16), resume usual activities as tolerated Diet: low fat, low cholesterol, low salt diet Hospital course: Ms. Akbar is a 46 year old female with history of postural orthostatic tachycardia syndrome, osteoarthritis who was admitted here with complaints of abdominal pain and diarrhea. She was found to have diffuse colitis with mesenteric standing per CT done in the ER. She was started on treatment for this with intravenous antibiotics. Patient also began to have bloody bowel movements and gastroenterology was consulted. Her hemoglobin levels remained stable although there have been trending slowly downwards. Gastroenterology recommends that the patient undergo colonoscopy as outpatient in 4-6 weeks. Patient had been taking Mobic for pain and has been advised to stop taking this medication. She has been placed on PPI. Her frequency of diarrhea and bloody bowel movements are also improving. Patient's abdominal pain has improved and she feels much better now and is tolerating diet well. She is stable for discharge on oral antibiotics. GI panel was negative for any bacterial infection. - Time Spent with Patient Total time spent providing and/or coordinating discharge services: Less than 30 minutes (25 min) - Constitutional Vitals: Temp Pulse Resp BP Pulse Ox 98 F 76 17 122/84 98 12/03/16 11:52 12/03/16 11:52 12/03/16 11:52 12/03/16 11:52 12/03/16 11:52 General appearance: Present: A&O X 3, pleasant, no acute distress, answers questions appropriately - Respiratory Respiratory exam: Present: CTAB. Absent: accessory muscle use, rales, rhonchi, wheezes - Cardiovascular Cardiovascular exam: Present: RRR, +S1, +S2. Absent: diastolic murmur, gallop, rubs, systolic murmur - GI/Abdominal GI/Abdominal exam: Present: normal bowel sounds, soft, no peritoneal signs. Absent: distended, tenderness - VTE Documentation of Mechanical Device: Intermittent pneumatic compression device
[2016-12-05 07:12] LABS: Ova & Parasite Stain NEGATIVE (Negative)
== END 2016-12-03 14:24 | disposition home or self-care (01) | DRG 392 ==
LOC: EMEROO 19:15 → 3ANU 19:15 → SUATTDRO 11-30 05:22
PROVIDERS: ADMIT Hospitalist; ATTEND Internal Medicine

== ENCOUNTER 2017-12-20 04:45 | Observation (INO) ==
[2017-12-20] MEDS ORDERED: *HR* LORazepam 2 MG/ML VIAL IVP ONE ×2 (05:03→06:30)
[2017-12-20] MEDS ORDERED: 0.9 % Sodium Chloride 1,000 ML IVC ONE ×2 (05:03→09:32)
[2017-12-20 05:26] LABS: Basophils % 0.3 %; Eosinophils # 0.1 K/mcL (0.0-0.6); Eosinophils % 0.4 %; Hematocrit 42.3 % (35.3-44.9); Hemoglobin 14.6 g/dL (11.5-15.4); Immature Granulocytes % 0.9 % (0-4); Lymphocytes # 1.5 K/mcL (0.6-4.6); Mean Corpuscular HGB Conc 34.5 g/dL (31.6-35.5); Mean Corpuscular Hemoglobin 29.7 pg (28.0-33.3); Mean Corpuscular Volume 86.2 fL (83.0-100.0); Mean Platelet Volume 9.6 fL (9.4-12.4); Monocytes # 0.9 K/mcL (0.0-1.3); Monocytes % 6.3 %; Neutrophils # 11.1 K/mcL (1.6-8.9); Platelet Count 506 K/mcL (140-400); Red Blood Count 4.91 M/mcL (3.82-4.97); Red Cell Distribution Width 12.8 % (11.5-14.5); Segmented Neutrophils % 81.1 %
[2017-12-20 05:31] LABS: INR 1.3
--- NOTE | 2017-12-20 05:47 | Emergency Department Note ---
Disposition Clinical Impression: Delirium due to general medical condition, Altered mental status, Delirium Disposition: Admitted As Inpatient Condition: Fair Forms: ED Satisfaction Letter Time of Disposition: 06:49 Altered Mental Status HPI - General Chief Complaint: ED Altered Mental Status Stated Complaint: AMS Time Seen by Provider: 12/20/17 05:02 Source: patient Mode of arrival: EMS Limitations: no limitations Nursing Notes Reviewed: Yes Vital Signs Reviewed: Yes - History of Present Illness HPI Narrative: Patient presents by EMS for progression of confusion and altered mentation. Family has noticed these symptoms since Thursday of this week. The concern is that she has had a slow decline over the last week. They deny any fevers or chills. She was seen here several days ago and diagnosed with diffuse colitis in the abdomen. Denies any medication issues or other etiology. She does have some significant life stressors here in the last couple weeks secondary to losing a significant other and some financial related issues. 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 MD complaint: altered mental status, confusion Onset (ago): day(s) Timing confirmed by: family member Consistency of Symptoms: waxing and waning Associated symptoms: Reports: loss of appetite, other - Related Data Home Medications Medication Instructions Recorded Confirmed Atenolol 100 mg PO DAILY 11/29/16 11/30/16 Previous Rx's Medication Instructions Recorded Acetaminophen [Tylenol] 650 mg PO Q6HR PRN tab 12/03/16 Ciprofloxacin [Cipro] 500 mg PO BID #20 tablet 12/03/16 Loperamide [Imodium] 2 mg PO Q4HR PRN #15 tab 12/03/16 Metoclopramide [Reglan] 10 mg PO Q6HR PRN #20 tablet 12/03/16 Omeprazole [PriLOSEC] 20 mg PO DAILY@0730 #30 cap 12/03/16 metroNIDAZOLE [Flagyl] 500 mg PO TID #30 tablet 12/03/16 Ciprofloxacin [Cipro] 500 mg PO BID #28 tablet 12/18/17 metroNIDAZOLE [Flagyl] 500 mg PO TID #42 tablet 12/18/17 Allergies Allergy/AdvReac Type Severity Reaction Status Date / Time codeine Allergy See Verified 11/30/16 11:42 Comments meloxicam Allergy See Verified 11/30/16 11:42 Comments All systems ED: reviewed and negative except as stated. Review of Systems: As Per HPI Constitutional: Denies: fever, chills, weakness Cardiovascular: Denies: chest pain, palpitations, dyspnea on exertion, orthopnea Respiratory: Denies: cough, dyspnea, wheezes Gastrointestinal: Denies: abdominal pain, nausea, vomiting, diarrhea Genitourinary: Denies: dysuria, frequency, hematuria Musculoskeletal: Denies: back pain, neck pain Integumentary: Denies: rash Past Medical History - Past Medical History Attestation: Yes The following information was validated with the patient. Source: patient Medical history: Reports: other Surgical history: Reports: , hysterectomy, other Psychiatric history: Reports: no psych history - Social History Smoking Status: Never smoker Smokeless Tobacco Status: No Alcohol use: Reports: none Drug use: Reports: none Physical Exam - General Limitations: no limitations General appearance: alert, in no apparent distress - Head Head exam: atraumatic, normocephalic, normal inspection - Eye Eye exam: Present: mydriasis. Absent: conjunctival injection, periorbital swelling, periorbital tenderness - ENT ENT exam: normal exam - Neck Neck exam: Present: normal inspection, full ROM. Absent: trachea midline, tenderness, meningismus, lymphadenopathy - Chest Chest inspection: Present: normal inspection, symmetric chest wall rise - Respiratory Respiratory exam: Present: normal lung sounds bilaterally - Cardiovascular Cardiovascular exam: Present: regular rate, normal rhythm, normal heart sounds - Abdominal Exam Abdominal exam: Present: soft, Non-Tender, normal bowel sounds. Absent: tenderness, distention, guarding, rebound, rigidity - Extremities Exam Extremities exam: Present: normal inspection, full ROM, normal capillary refill. Absent: tenderness - Back Exam Back exam: Present: normal inspection, full ROM. Absent: tenderness, CVA tenderness (R), CVA tenderness (L) - Neurological Exam Neurological exam: Present: alert, CN II-XII intact, normal gait - Skin Skin exam: Present: warm, dry, intact, normal color Course Course Narrative: Patient seen and examined the time of arrival. See history of present illness. 47-year-old female presents emergency room by EMS for progression of altered mentation. Approximately Thursday of this week the patient started to have some confusion issues. She came in the emergency room on Thursday and evaluation completed that time that found her to have colitis. The working differential at that point was at the colitis was causing some of the confusion secondary to the illness. Patient was symptomatically treated and discharged home. Tonight she progressively got worse to the point where she is fixed and unable to stop from using her phone. She has no specific psychiatric history but she does have some significant life stressors including a boyfriend that left ear as well as significant financial issues causing her to lose her home. Patient denies any exposure to ticks or travel outside the country. She has no history of syphilis or gonorrhea or chlamydia or herpes according to the family but they do not know specifically. Patient has not had any fevers at home. She denies any trauma or injury. Prior to 5 days ago the patient was alert and oriented and able to take care of herself difficulty and now she is unable to take care of her ask of daily living. Patient has not taken any new medications outside of the antibiotics for which she is only having 1 dose. Her initial vital signs show significant tachycardia. She is afebrile at this point. She does otherwise have no acute findings. Head is atraumatic pupils appear to be slightly dilated but they do contract complaints. She does appear to have dry mucous membranes her oropharynx is patent trachea is midline she has no meningeal symptoms she has no lymphadenopathy. She has full range of motion the neck. Her lungs are clear her heart is regular but tachycardic with no murmurs noted. Abdomen is soft she does have suprapubic discomfort and tenderness. Patient does have the colitis is a known working differential that was confirmed by CT scan. She denies any history of urinary tract infection. She does have some redness to the skin across the anterior chest wall. She will fall commands and moves her extremities. She does appear to have cognitive ability because she still is requesting to have her phone and was able to manipulate a family member to bring it closer to in the region the pocket and take the phone out of her pocket wall at the bedside. Working differential at this point is progression of a potential neurologic illness, psychiatric related pathology, encephalopathy, potential medication related reaction or issue at this point. 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 Patient will be started with fluids EKG chest x-ray CT of the head labs including CBC chemistry troponin along with electrolytes carboxyhemoglobin syphilis, herpes, urinalysis urine drug screen Tylenol salicylates and alcohol level. The etiology to the patient's presentation of this point is broad. Family is unaware of any ingestion or history of psychiatric illness. Patient is otherwise clinically stable but is concerning secondary the presentation. The patient will have vancomycin and Rocephin and acyclovir ordered after our no other acute findings and laboratory workup to justify the tachycardia and altered mentation. If this is the case the patient may require lumbar puncture here in the emergency room and sedation to complete this procedure. Disposition pending the full workup and treatment course. - Reevaluation(s) Reevaluation #1: Urinalysis is unremarkable. Urine drug screen does not show any acute etiology. Lumbar puncture was consented with the son who is at the bedside. No other direct Can is with patient this time. She does not at this point and the mental decision-making capacity to consent for this procedure. Procedural sedation will be utilized to help with stability the patient during the procedure and then a lumbar puncture was consented as well. Antibiotic will be started after the LP is completed Time: 06:45 Reevaluation #2: Patient had procedural sedation completed with approximately 10 mg of etomidate provided. Patient medications. 3 attempts were made for lumbar puncture with no success. Anatomical variants was noted with the patient having bony abnormality and possible arthritis in the back. Unable to collect samples of this time. Patient tolerated well. The area did not bleed or shortness acute signs of decompensation. Patient will be laid flat and then radiology will be contacted for lumbar puncture. Antibiotics will be started at this time. Hospitalist was paged at this time. Admission process to be completed. No other acute etiology noted at this point. Time: 07:24 Reevaluation #3: Patient was discussed with the hospitalist. Admission process to be completed. Antibiotic regimen have been started. No other recommendations or concerns Time: 07:37 Vital Signs Temperature 98.8 F 12/20/17 04:51 Pulse Rate 163 12/20/17 04:51 Respiratory Rate 18 12/20/17 04:51 Blood Pressure 143/98 12/20/17 04:51 O2 Sat by Pulse Oximetry 97 12/20/17 04:51 Temperature 98.8 F 12/20/17 04:51 Pulse Rate 154 12/20/17 07:11 Respiratory Rate 26 12/20/17 07:11 Blood Pressure 127/113 12/20/17 07:11 O2 Sat by Pulse Oximetry 100 12/20/17 07:11 Oxygen Delivery Oxygen Delivery Nasal Cannula Procedures - Lumbar Puncture Consent Obtained: verbal consent, written consent Time Out Performed: Yes Patient Position: right lateral decubitus Skin Prep: 0.5% Chlorhexidine/Alcohol Local Anesthetic: lidocaine 1% Amount of anesthesia used (mL): 4 Spinal Needle Gauge: 20G Interspace Used: L3-L4 Complications: unable to obtain CSF - Procedural Sedation Indication: other Dietary Status: NPO after Midnight H&P (including ROS) documented in medical record: Yes Previous reaction to sedatives/anesthetics: No Dentition: No loose teeth or bridges, full dentition Airway Assessment: Patient can open mouth completely, TMJ function normal Possible difficult airway: No ASA Classification: CLASS I-Normal, healthy patient Plan of Care: Pt appropriate candidate for procedure/moderate/conscious sedation , Risks/benefits of procedure/sedation discussed w/ patient/family Preparation: bus monitor applied, pulse oximeter, capnometry used, supplemental O2 applied, reversal agents at bedside, suction/airway equipment at bedside, IV secured IV Etomidate Dose (mgs): 10 Patient Tolerated Procedure: well Complications: none Altered Mental Status - MDM Narrative Medical decision making narrative: Altered mentation, confusion, tachycardia - Medical Records Medical records reviewed: Yes I reviewed the patient's medical records. - Lab Data Lab results reviewed: Yes I reviewed the patient's lab results. Result diagrams: 12/20/17 05:08 12/20/17 05:08 Lab Results 12/20/17 12/20/17 12/20/17 Range/Units 05:08 05:08 05:08 WBC 13.7 H (4.3-11.1) K/mcL RBC 4.91 (3.82-4.97) M/mcL Hgb 14.6 (11.5-15.4) g/dL Hct 42.3 (35.3-44.9) % MCV 86.2 (83.0-100.0) fL MCH 29.7 (28.0-33.3) pg MCHC 34.5 (31.6-35.5) g/dL RDW 12.8 (11.5-14.5) % Plt Count 506 H (140-400) K/mcL MPV 9.6 (9.4-12.4) fL Immature Gran % 0.9 (0-4) % Seg Neutrophils % 81.1 % Lymphocytes % 11.0 % Monocytes % 6.3 % Eosinophils % 0.4 % Basophils % 0.3 % Neutrophils # 11.1 H (1.6-8.9) K/mcL Lymphocytes # 1.5 (0.6-4.6) K/mcL Monocytes # 0.9 (0.0-1.3) K/mcL Eosinophils # 0.1 (0.0-0.6) K/mcL Basophils # 0.0 (0.0-0.2) K/mcL PT 15.0 H (9.4-12.1) Seconds INR 1.3 APTT 26.0 (26.0-36.0) Seconds Carboxyhemoglobin (0-5) % Sodium 136 (136-145) mEq/L Potassium 3.7 (3.5-5.1) mEq/L Chloride 102 (98-107) mEq/L Carbon Dioxide 19 L (23-29) mEq/L BUN 9 (6-20) mg/dL Creatinine 0.77 (0.60-1.20) mg/dL Est GFR ( Amer) > 60 (> 60) Est GFR (Non-Af Amer) > 60 (> 60) BUN/Creatinine Ratio 12 (6-26) Glucose 161 H (70-105) mg/dL Calculated Osmolality 284 (280-300) Calcium 9.0 (8.6-10.3) mg/dL Total Bilirubin 0.4 (0.3-1.0) mg/dL Direct Bilirubin 0.1 (0.0-0.2) mg/dL Indirect Bilirubin 0.3 (0.0-1.2) mg/dL AST 12 L (13-39) Units/L ALT 14 (7-52) Units/L Alkaline Phosphatase 67 (34-104) Units/L Ammonia (16-53) mcmol/L Creatine Kinase 13 L (30-223) Units/L Troponin I < 0.03 (< 0.04) ng/mL Serum Total Protein 6.5 (6.4-8.9) g/dL Albumin 3.3 L (3.5-5.7) g/dL Globulin 3.2 (2.4-3.5) g/dL Albumin/Globulin Ratio 1.0 L (1.1-2.2) TSH 1.662 (0.340-5.600) mcIU/mL Urine Color (Yellow) Urine Clarity (Clear) Urine pH (5.0-8.0) pH Units Ur Specific Penn (1.010-1.025) Urine Protein (Neg-Trace) mg/dL Urine Glucose (UA) (Normal) mg/dL Urine Ketones (Negative) mg/dL Urine Blood (Negative) Urine Nitrite (Negative) Urine Bilirubin (Negative) Urine Urobilinogen (Normal) mg/dL Ur Leukocyte Esterase (Negative) Urine Microscopic RBC (0-3) per hpf Urine Microscopic WBC (0-3) per hpf Ur Squamous Epith Cells (None-Few) per lpf Urine Bacteria (None-Few) per hpf Hyaline Casts (None-Few) per lpf Ur Culture Indicated? (NO) Salicylates < 2.5 L (15.0-30.0) mg/dL Urine Opiates Screen (Htcmex=659) ng/mL Acetaminophen < 10 L (10-20) mcg/mL Ur Barbiturates Screen (Dmgtul=493) ng/mL Ur Phencyclidine Scrn (Cutoff=25) ng/mL Ur Amphetamines Screen (Qmradx=0507) ng/mL U Benzodiazepines Scrn (Yyxjmp=459) ng/mL Urine Cocaine Screen (Cutoff= 300) ng/mL U Marijuana (THC) Screen (Cutoff = 50) ng/mL Ur Drug Screen Interp Ethyl Alcohol < 10 (Less than 10) mg/dL 12/20/17 12/20/17 12/20/17 Range/Units 05:08 05:46 06:00 WBC (4.3-11.1) K/mcL RBC (3.82-4.97) M/mcL Hgb (11.5-15.4) g/dL Hct (35.3-44.9) % MCV (83.0-100.0) fL MCH (28.0-33.3) pg MCHC (31.6-35.5) g/dL RDW (11.5-14.5) % Plt Count (140-400) K/mcL MPV (9.4-12.4) fL Immature Gran % (0-4) % Seg Neutrophils % % Lymphocytes % % Monocytes % % Eosinophils % % Basophils % % Neutrophils # (1.6-8.9) K/mcL Lymphocytes # (0.6-4.6) K/mcL Monocytes # (0.0-1.3) K/mcL Eosinophils # (0.0-0.6) K/mcL Basophils # (0.0-0.2) K/mcL PT (9.4-12.1) Seconds INR APTT (26.0-36.0) Seconds Carboxyhemoglobin 6.0 H (0-5) % Sodium (136-145) mEq/L Potassium (3.5-5.1) mEq/L Chloride (98-107) mEq/L Carbon Dioxide (23-29) mEq/L BUN (6-20) mg/dL Creatinine (0.60-1.20) mg/dL Est GFR ( Amer) (> 60) Est GFR (Non-Af Amer) (> 60) BUN/Creatinine Ratio (6-26) Glucose (70-105) mg/dL Calculated Osmolality (280-300) Calcium (8.6-10.3) mg/dL Total Bilirubin (0.3-1.0) mg/dL Direct Bilirubin (0.0-0.2) mg/dL Indirect Bilirubin (0.0-1.2) mg/dL AST (13-39) Units/L ALT (7-52) Units/L Alkaline Phosphatase (34-104) Units/L Ammonia 22 (16-53) mcmol/L Creatine Kinase (30-223) Units/L Troponin I (< 0.04) ng/mL Serum Total Protein (6.4-8.9) g/dL Albumin (3.5-5.7) g/dL Globulin (2.4-3.5) g/dL Albumin/Globulin Ratio (1.1-2.2) TSH (0.340-5.600) mcIU/mL Urine Color Dark Yellow (Yellow) Urine Clarity Cloudy A (Clear) Urine pH 5.0 (5.0-8.0) pH Units Ur Specific Penn 1.024 (1.010-1.025) Urine Protein Trace (Neg-Trace) mg/dL Urine Glucose (UA) Normal (Normal) mg/dL Urine Ketones 40 H (Negative) mg/dL Urine Blood Negative (Negative) Urine Nitrite Negative (Negative) Urine Bilirubin Small H (Negative) Urine Urobilinogen Normal (Normal) mg/dL Ur Leukocyte Esterase Small H (Negative) Urine Microscopic RBC 0-3 (0-3) per hpf Urine Microscopic WBC 5-15 H (0-3) per hpf Ur Squamous Epith Cells Many H (None-Few) per lpf Urine Bacteria None Seen (None-Few) per hpf Hyaline Casts None Seen (None-Few) per lpf Ur Culture Indicated? NO. A (NO) Salicylates (15.0-30.0) mg/dL Urine Opiates Screen (Tokijs=092) ng/mL Acetaminophen (10-20) mcg/mL Ur Barbiturates Screen (Ptnwvy=577) ng/mL Ur Phencyclidine Scrn (Cutoff=25) ng/mL Ur Amphetamines Screen (Slkhwk=4368) ng/mL U Benzodiazepines Scrn (Egbbrr=609) ng/mL Urine Cocaine Screen (Cutoff= 300) ng/mL U Marijuana (THC) Screen (Cutoff = 50) ng/mL Ur Drug Screen Interp Ethyl Alcohol (Less than 10) mg/dL 12/20/17 Range/Units 06:00 WBC (4.3-11.1) K/mcL RBC (3.82-4.97) M/mcL Hgb (11.5-15.4) g/dL Hct (35.3-44.9) % MCV (83.0-100.0) fL MCH (28.0-33.3) pg MCHC (31.6-35.5) g/dL RDW (11.5-14.5) % Plt Count (140-400) K/mcL MPV (9.4-12.4) fL Immature Gran % (0-4) % Seg Neutrophils % % Lymphocytes % % Monocytes % % Eosinophils % % Basophils % % Neutrophils # (1.6-8.9) K/mcL Lymphocytes # (0.6-4.6) K/mcL Monocytes # (0.0-1.3) K/mcL Eosinophils # (0.0-0.6) K/mcL Basophils # (0.0-0.2) K/mcL PT (9.4-12.1) Seconds INR APTT (26.0-36.0) Seconds Carboxyhemoglobin (0-5) % Sodium (136-145) mEq/L Potassium (3.5-5.1) mEq/L Chloride (98-107) mEq/L Carbon Dioxide (23-29) mEq/L BUN (6-20) mg/dL Creatinine (0.60-1.20) mg/dL Est GFR ( Amer) (> 60) Est GFR (Non-Af Amer) (> 60) BUN/Creatinine Ratio (6-26) Glucose (70-105) mg/dL Calculated Osmolality (280-300) Calcium (8.6-10.3) mg/dL Total Bilirubin (0.3-1.0) mg/dL Direct Bilirubin (0.0-0.2) mg/dL Indirect Bilirubin (0.0-1.2) mg/dL AST (13-39) Units/L ALT (7-52) Units/L Alkaline Phosphatase (34-104) Units/L Ammonia (16-53) mcmol/L Creatine Kinase (30-223) Units/L Troponin I (< 0.04) ng/mL Serum Total Protein (6.4-8.9) g/dL Albumin (3.5-5.7) g/dL Globulin (2.4-3.5) g/dL Albumin/Globulin Ratio (1.1-2.2) TSH (0.340-5.600) mcIU/mL Urine Color (Yellow) Urine Clarity (Clear) Urine pH (5.0-8.0) pH Units Ur Specific Penn (1.010-1.025) Urine Protein (Neg-Trace) mg/dL Urine Glucose (UA) (Normal) mg/dL Urine Ketones (Negative) mg/dL Urine Blood (Negative) Urine Nitrite (Negative) Urine Bilirubin (Negative) Urine Urobilinogen (Normal) mg/dL Ur Leukocyte Esterase (Negative) Urine Microscopic RBC (0-3) per hpf Urine Microscopic WBC (0-3) per hpf Ur Squamous Epith Cells (None-Few) per lpf Urine Bacteria (None-Few) per hpf Hyaline Casts (None-Few) per lpf Ur Culture Indicated? (NO) Salicylates (15.0-30.0) mg/dL Urine Opiates Screen Negative (Myngzi=117) ng/mL Acetaminophen (10-20) mcg/mL Ur Barbiturates Screen Negative (Ntgenl=569) ng/mL Ur Phencyclidine Scrn Negative (Cutoff=25) ng/mL Ur Amphetamines Screen Negative (Skrzvi=6987) ng/mL U Benzodiazepines Scrn Negative (Iopbek=202) ng/mL Urine Cocaine Screen Negative (Cutoff= 300) ng/mL U Marijuana (THC) Screen Negative (Cutoff = 50) ng/mL Ur Drug Screen Interp See Below Ethyl Alcohol (Less than 10) mg/dL - Radiology Data Radiology results reviewed: Yes I reviewed the patient's radiology results. CT imaging of the head and chest x-ray are unremarkable this time - EKG Data EKG attestation: Yes I reviewed and interpreted this EKG. EKG results narrative: EKG shows sinus tachycardia. Heart rate of 158. CT interval 100. QRS duration of 82. QTC estimated to be less than 460. It is Q into the P-wave. Previous EKG from 05/06/04 shows no other acute abnormalities at this point. Patient does not show any acute signs of ST segment elevation or abnormality. No acute signs of WPW or Brugada syndrome. TPA Checklist - LKW: 3-4.5 hrs Add. Warnings/Precautions Patient/family understanding: The patient/family members have been counseled and understood the risk, benefit , and alternatives of treatment.
[2017-12-20 05:48] LABS: Acetaminophen < 10 mcg/mL (10-20); Alanine Aminotransferase 14 Units/L (7-52); Albumin 3.3 g/dL (3.5-5.7); Alkaline Phosphatase 67 Units/L (34-104); Aspartate Amino Transferase 12 Units/L (13-39); BUN/Creatinine Ratio 12 (6-26); Bilirubin,Direct 0.1 mg/dL (0.0-0.2); Bilirubin,Indirect 0.3 mg/dL (0.0-1.2); Bilirubin,Total 0.4 mg/dL (0.3-1.0); Blood Urea Nitrogen 9 mg/dL (6-20); Carbon Dioxide 19 mEq/L (23-29); Chloride 102 mEq/L (98-107); Ethanol < 10 mg/dL (Less than 10); Globulin 3.2 g/dL (2.4-3.5); Glucose 161 mg/dL (70-105); Osmolality,Calculated 284 (280-300); Potassium 3.7 mEq/L (3.5-5.1); Salicylate < 2.5 mg/dL (15.0-30.0); Sodium 136 mEq/L (136-145); Total Protein 6.5 g/dL (6.4-8.9); Troponin I < 0.03 ng/mL (< 0.04); eGFR For Non-African Americans > 60 (> 60)
[2017-12-20] MEDS ORDERED: cefTRIAXone 1,000 MG in Water for inj. (sterile) 20 ML 10 ML IVP ONE (05:54)
[2017-12-20] MEDS ORDERED: Acyclovir 750 MG in D5% in Water 250 ML IVPB STA (05:54)
[2017-12-20 06:01] LABS: Thyroid Stimulating Hormone 1.662 mcIU/mL (0.340-5.600)
[2017-12-20 06:05] LABS: Amphetamine Screen,Urine Negative ng/mL (Cutoff=1000); Barbiturate Screen,Urine Negative ng/mL (Cutoff=200)
[2017-12-20 06:06] LABS: Benzodiazepines Screen,Urine Negative ng/mL (Cutoff=300); Cannabinoid Screen,Urine Negative ng/mL (Cutoff = 50); Cocaine Screen,Urine Negative ng/mL (Cutoff= 300); Opiate Screen,Urine Negative ng/mL (Cutoff=300); Phencyclidine Screen,Urine Negative ng/mL (Cutoff=25)
[2017-12-20 06:09] LABS: Bilirubin,Urine Small (Negative); Blood,Urine Negative (Negative); Clarity,Urine Cloudy (Clear); Color,Urine Dark Yellow (Yellow); Glucose,Urine (UA) Normal (Normal); Ketones,Urine 40 mg/dL (Negative); Leukocyte Esterase,Urine Small (Negative); Nitrite,Urine Negative (Negative); Protein,Urine Trace mg/dL (Neg-Trace); Specific Gravity,Urine 1.024 (1.010-1.025); Urobilinogen,Urine Normal (Normal)
[2017-12-20 06:11] LABS: Bacteria,Urine None Seen per hpf (None-Few); RBC,Urine 0-3 per hpf (0-3); Squamous Epithelial Cell,Urine Many per lpf (None-Few)
[2017-12-20] MEDS ORDERED: *HR* Etomidate 20 MG/10 ML AMPUL IVP ONE (06:21)
[2017-12-20 06:29] LABS: Hyaline Casts,Urine None Seen per lpf (None-Few)
[2017-12-20] MEDS ORDERED: *HR* LORazepam 2 MG/ML VIAL ONE (06:33)
[2017-12-20 06:47] LABS: Creatine Kinase 13 Units/L (30-223)
[2017-12-20] MEDS ORDERED: Naloxone 0.4 MG/ML INJ IVP PRN (08:52)
--- NOTE | 2017-12-20 11:09 | Internal Med History&Physical ---
Date of Encounter: 12/20/17 Time of Encounter: 11:06 Internal Medicine - H&P: HPI Chief complaint: Altered mental status, behavioral problems Admitted From: Emergency Dept Plans for Post Hospital Care: Transfer Psych Facility History of present illness: Ms. Akbar is a 47 year old female patient with history of hypertension, recurrent bouts of colitis who presented to the ER with complaints of altered mental status and behavioral changes that are uncharacteristic for her. These have been going on since Thursday. She had been seen in the ER and then and was diagnosed with colitis and discharged home. However when she got home when her physical symptoms improved, she continued to decline mentally with decreased memory, not recognizing people around her and not able to carry out conversations. She has never had these symptoms in the past. According to her family was present at the bedside and provided most of the history, patient has had a recent significant stressful event in her life. Currently patient is not able to carry conversation and keeps saying "stop" to my questions. Patient apparently has history of colitis and has had colonoscopies in the past with no clear diagnosis. Pathology results from her last colonoscopy showed chronic active colitis. She has been taking her antibiotics as prescribed. She does have incontinence stools when she has bouts of acute colitis. She wears depends during this time. Patient's family reports that when she was brought in on Thursday she was barely able to walk and cannot bend forward. However this improved and she has been able to walk at home. No focal weakness reported. No vision changes. No nausea or vomiting today. However she did have episodes of nausea and vomiting on Thursday. After my interview I got a message from the nurse stating that the patient was having suicidal ideation and made a comment to her son that she wanted to kill herself by wrapping the call light cord around her neck. Past Med Surg Social Fam HX - Past Medical History Attestation: Yes The following information was validated with the patient. Source: old records reviewed Medical history: other (Chronic active colitis) Additional medical history: POTS, colitis Psychiatric history: no psych history - Past Surgical History Surgical History: , hysterectomy, other Additional surgical history: TONSILS,SINUS - Social History Smoking Status: Never smoker Smokeless Tobacco Status: No Alcohol use: none Drug use: none - Family History Father Hx Family Endocrine Disorder: Yes (DM) Mother Hx Family Respiratory Disorders: Yes Internal Medicine - H&P: Meds Atenolol 100 mg PO DAILY 12/20/17 [History] Ciprofloxacin [Cipro] 500 mg PO BID 12/20/17 [History] Dicyclomine [Bentyl] 10 mg PO QID 12/20/17 [History] Meloxicam [Mobic] 7.5 mg PO DAILY 12/20/17 [History] Omeprazole [PriLOSEC] 20 mg PO DAILY 12/20/17 [History] metroNIDAZOLE [Metronidazole] 500 mg PO DAILY 12/20/17 [History] 3 Allergy/AdvReac Type Severity Reaction Status Date / Time codeine Allergy See Verified 11/30/16 11:42 Comments meloxicam Allergy See Verified 11/30/16 11:42 Comments ROS unobtainable: due to mental status All Systems PM: A 10-system review of systems was performed and is negative for pertinent findings except as documented above in the HPI. - Constitutional Constitutional: no chills, no fever(s), no night sweats - EENT Eyes: no change in vision, no discharge, no pain, no photophobia Ears: no ear discharge, no ear pain, no tinnitus Nose, mouth and throat: no dysphagia, no nasal discharge, no neck pain, no sore throat - Cardiovascular Cardiovascular ROS IM: no chest pain, no diaphoresis, no dyspnea, no lightheadedness, no palpitations, no syncope - Respiratory Respiratory: no cough, no dyspnea, no wheezing, no excessive phlegm production - Gastrointestinal Gastrointestinal: fecal incontinence, no abdominal pain, no diarrhea, no hematemesis, no hematochezia, no melena, no nausea, no vomiting - Genitourinary Genitourinary: no change in urinary stream, no dysuria, no flank pain, no hematuria - Neurological Neurological ROS: behavioral changes, confusion - Hematologic/Lymphatic Hematologic/Lymphatic: no easy bruising - Constitutional Vitals: Temp Pulse Resp BP Pulse Ox 98.6 F 152 16 106/77 98 12/20/17 09:15 12/20/17 09:15 12/20/17 09:15 12/20/17 09:15 12/20/17 09:15 General appearance: Present: A&O X 1. Absent: answers questions appropriately Exam: Patient does not cooperative to questions. Did not allow me to examine her. - Cardiovascular Cardiovascular exam: Present: tachycardia - Neurological Exam Neurological exam: Present: CN II-XII intact. Absent: facial droop, speech deficit Additional comments: Patient has spontaneous movements. Not cooperative with my exam - Psychiatric Psychiatric exam: Present: anxious Additional comments: Patient appeared anxious. Keeps repeating what I tell her. Internal Med - H&P Results - Labs CBC & Chem 7: 12/20/17 05:08 12/20/17 05:08 - EKG Data Rate: tachycardia - Assessment and plan (1) Acute metabolic encephalopathy Current Visit: Yes Status: Suspected Assessment and plan: Patient with acute metabolic encephalopathy. Etiology uncertain. CT scan of the head did not show any abnormality. Lumbar puncture attempted but unsuccessful. Patient being treated for possible encephalitis/meningitis. Continue IV hydration. Urology consult. Recommends MRI. We will get that done as soon as possible. (2) Tachycardia Current Visit: Yes Status: Acute Assessment and plan: Patient continues to have sinus tachycardia. Resume atenolol. Monitor with telemetry. (3) Delirium Current Visit: Yes Status: Acute Assessment and plan: Patient remains delirious. Ruling out medical causes. Monitor closely. Will treat with antipsychotic agents if patient becomes combative and interfering with appropriate treatment. (4) Colitis Current Visit: Yes Status: Acute Assessment and plan: Chronic colitis with an acute episode. Continue antibiotics. (5) Suicidal ideation Current Visit: Yes Status: Acute Assessment and plan: Reported by nursing staff. Will place patient on temporary involuntary hold. Consult psychiatric. Suicide precautions. - Time Spent With Patient Total time spent is greater than 50% in coordination of care (as documented) at patient's floor/unit and/or counseling patient:
[2017-12-20] MEDS ORDERED: Haloperidol Lactate 5 MG/ML VIAL IVP ONE (11:13)
[2017-12-20] MEDS: 0.9 % Sodium Chloride 1,000 ML IVC SCH ×2 (11:25→23:38)
--- NOTE | 2017-12-20 11:51 | Consult Note ---
Date of Encounter: 12/20/17 Time of Encounter: 11:46 Assessment & Recommendation (1) Delirium due to general medical condition Current visit: Yes Status: Acute Assessment & Recommendation: Delirious vs. Psychotic with catatonic behaviors (echolalia, repetitive movements/vocalizations). No mental health history. Unclear if presentation is a brief psychotic disorder in response to recent stressors or a delirium in response to recent medical problems such as flare up of colitis. Either way would start treatment with an antipsychotic and a benzodiazepine. Can give Haldol and Ativan to start. Would recommend 5mg of Haldol and 1mg of Ativan at a time and monitor for response. If given IV would keep her on telemetry. Will follow along. History of Present Illness Requesting Physician: Shahnaz Wilks MD Reason for consult: AMS History of present illness: Ms. Akbar is a 47 year old female with no mental health history who was admitted secondary to mental status changes. On eval today client is delirious vs. psychotic with catatonic behaviors. Daughter at bedside. Client unable to give any history but daughter is able to provide information. Client has apparently been deteriorating over last week. Family noticed mental status changes approx one week ago but things have worsened significantly in last three days. Client has become combative. She is not talking to them but instead repeating what they say. After procedure this morning client apparently started insisting her name was Carmita and tried to wrap call light cord around her neck. According to daughter nothing like this has ever happened before. No mental health history of any kind in either client or family. No substance abuse issues. Client has had recent stressors including a relationship break up and financial stressors due to physical health problems. Client has been unable to work due to flare up of colitis and FMLA almost out. Client at risk for losing home and car. CC: Shahnaz Wilks MD Past Med Surg Social Fam HX - Past Medical History Medical history: other (Chronic active colitis) - Past Psychiatric History Psychiatric history: Reports: no psych history Family psychiatric history: No Family History of Suicide: None - Past Surgical History Surgical History: , hysterectomy, other - Social History Smoking Status: Never smoker Smokeless Tobacco Status: No Alcohol use: none Drug use: none - Family History Father Hx Family Endocrine Disorder: Yes (DM) Mother Living Status: Hx Family Respiratory Disorders: Yes Medications & Allergies Atenolol 100 mg PO DAILY 12/20/17 [History] Ciprofloxacin [Cipro] 500 mg PO BID 12/20/17 [History] Dicyclomine [Bentyl] 10 mg PO QID 12/20/17 [History] Meloxicam [Mobic] 7.5 mg PO DAILY 12/20/17 [History] Omeprazole [PriLOSEC] 20 mg PO DAILY 12/20/17 [History] metroNIDAZOLE [Metronidazole] 500 mg PO DAILY 12/20/17 [History] 3 Allergy/AdvReac Type Severity Reaction Status Date / Time codeine Allergy See Verified 11/30/16 11:42 Comments meloxicam Allergy See Verified 11/30/16 11:42 Comments Review of Systems Constitutional: Denies: fever, chills, weakness, weight change Eyes: Denies: eye pain, vision change Ears, Nose, Throat: Denies: ear pain, throat pain, dental pain, hearing loss, congestion Cardiovascular: Denies: chest pain, palpitations, dyspnea on exertion Gastrointestinal: Reports: abdominal pain, other Genitourinary female: Denies: urgency, dysuria, frequency, abnormal menses, dyspareunia Musculoskeletal: Denies: joint swelling, joint pain Integumentary: Denies: rash, lesions, pruritus Neurological: Denies: headache, weakness, numbness, memory loss Endocrine: Denies: fatigue, heat or cold intolerance Hematologic/Lymphatic: Denies: easy bruising, lymphadenopathy Allergic/Immunologic: Denies: urticaria, itchy eyes Psychiatry Exam - Constitutional Vitals: Temp Pulse Resp BP Pulse Ox 98.6 F 152 16 106/77 98 12/20/17 09:15 12/20/17 09:15 12/20/17 09:15 12/20/17 09:15 12/20/17 09:15 General appearance: age & developmentally appropriate - Musculoskeletal Gait: normal Station: relaxed Strength & Tone: normal for patient - Psychiatric Patient Orientation: Yes Other Level of alertness: Alert Behavior: agitated Psychomotor activity: Repetitive movements Eye Contact: Avoids Eye Contact Mood Description: Other Affect description: blunted Speech Volume: Normal Speech pattern: Inappropriate to situation, repetetive Language & Vocabulary: consistent with education Thought Process: Perseveration Thought Content: Yes Suicidal ideation, Yes Homicidal ideation, Yes Overt delusions, Yes Poverty of Content Perceptual Disturbances: Yes Reacting to internal stimuli Attention Span Ability: Unable to Focus, Unable to Sustain Attention Memory Description: Immediate Impaired, Recent Impaired Patient Reliability: Not Reliable Historian Fund of knowledge: Yes average Intelligence Estimate: Average Judgment: Poor Insight: None Results - Labs Labs: Laboratory Last Values WBC 13.7 K/mcL (4.3-11.1) H 12/20/17 05:08 RBC 4.91 M/mcL (3.82-4.97) 12/20/17 05:08 Hgb 14.6 g/dL (11.5-15.4) 12/20/17 05:08 Hct 42.3 % (35.3-44.9) 12/20/17 05:08 MCV 86.2 fL (83.0-100.0) 12/20/17 05:08 MCH 29.7 pg (28.0-33.3) 12/20/17 05:08 MCHC 34.5 g/dL (31.6-35.5) 12/20/17 05:08 RDW 12.8 % (11.5-14.5) 12/20/17 05:08 Plt Count 506 K/mcL (140-400) H 12/20/17 05:08 MPV 9.6 fL (9.4-12.4) 12/20/17 05:08 Immature Gran % 0.9 % (0-4) 12/20/17 05:08 Seg Neutrophils % 81.1 % 12/20/17 05:08 Lymphocytes % 11.0 % 12/20/17 05:08 Monocytes % 6.3 % 12/20/17 05:08 Eosinophils % 0.4 % 12/20/17 05:08 Basophils % 0.3 % 12/20/17 05:08 Neutrophils # 11.1 K/mcL (1.6-8.9) H 12/20/17 05:08 Lymphocytes # 1.5 K/mcL (0.6-4.6) 12/20/17 05:08 Monocytes # 0.9 K/mcL (0.0-1.3) 12/20/17 05:08 Eosinophils # 0.1 K/mcL (0.0-0.6) 12/20/17 05:08 Basophils # 0.0 K/mcL (0.0-0.2) 12/20/17 05:08 PT 15.0 Seconds (9.4-12.1) H 12/20/17 05:08 INR 1.3 12/20/17 05:08 APTT 26.0 Seconds (26.0-36.0) 12/20/17 05:08 Carboxyhemoglobin 6.0 % (0-5) H 12/20/17 05:08 Sodium 136 mEq/L (136-145) 12/20/17 05:08 Potassium 3.7 mEq/L (3.5-5.1) 12/20/17 05:08 Chloride 102 mEq/L (98-107) 12/20/17 05:08 Carbon Dioxide 19 mEq/L (23-29) L 12/20/17 05:08 BUN 9 mg/dL (6-20) 12/20/17 05:08 Creatinine 0.77 mg/dL (0.60-1.20) 12/20/17 05:08 Est GFR ( Amer) > 60 (> 60) 12/20/17 05:08 Est GFR (Non-Af Amer) > 60 (> 60) 12/20/17 05:08 BUN/Creatinine Ratio 12 (6-26) 12/20/17 05:08 Glucose 161 mg/dL (70-105) H 12/20/17 05:08 Calculated Osmolality 284 (280-300) 12/20/17 05:08 Lactic Acid 1.3 mmol/L (0.5-2.2) 12/20/17 09:16 Calcium 9.0 mg/dL (8.6-10.3) 12/20/17 05:08 Total Bilirubin 0.4 mg/dL (0.3-1.0) 12/20/17 05:08 Direct Bilirubin 0.1 mg/dL (0.0-0.2) 12/20/17 05:08 Indirect Bilirubin 0.3 mg/dL (0.0-1.2) 12/20/17 05:08 AST 12 Units/L (13-39) L 12/20/17 05:08 ALT 14 Units/L (7-52) 12/20/17 05:08 Alkaline Phosphatase 67 Units/L (34-104) 12/20/17 05:08 Ammonia 22 mcmol/L (16-53) 08/26/18 05:46 Creatine Kinase 13 Units/L (30-223) L 12/20/17 05:08 Troponin I < 0.03 ng/mL (< 0.04) 12/20/17 05:08 Serum Total Protein 6.5 g/dL (6.4-8.9) 12/20/17 05:08 Albumin 3.3 g/dL (3.5-5.7) L 12/20/17 05:08 Globulin 3.2 g/dL (2.4-3.5) 12/20/17 05:08 Albumin/Globulin Ratio 1.0 (1.1-2.2) L 12/20/17 05:08 TSH 1.662 mcIU/mL (0.340-5.600) 12/20/17 05:08 Urine Color Dark Yellow (Yellow) 12/20/17 06:00 Urine Clarity Cloudy (Clear) A 12/20/17 06:00 Urine pH 5.0 pH Units (5.0-8.0) 12/20/17 06:00 Ur Specific [place] 1.024 (1.010-1.025) 12/20/17 06:00 Urine Protein Trace mg/dL (Neg-Trace) 12/20/17 06:00 Urine Glucose (UA) Normal mg/dL (Normal) 12/20/17 06:00 Urine Ketones 40 mg/dL (Negative) H 12/20/17 06:00 Urine Blood Negative (Negative) 12/20/17 06:00 Urine Nitrite Negative (Negative) 12/20/17 06:00 Urine Bilirubin Small (Negative) H 12/20/17 06:00 Urine Urobilinogen Normal mg/dL (Normal) 12/20/17 06:00 Ur Leukocyte Esterase Small (Negative) H 12/20/17 06:00 Urine Microscopic RBC 0-3 per hpf (0-3) 12/20/17 06:00 Urine Microscopic WBC 5-15 per hpf (0-3) H 12/20/17 06:00 Ur Squamous Epith Cells Many per lpf (None-Few) H 12/20/17 06:00 Urine Bacteria None Seen per hpf (None-Few) 12/20/17 06:00 Hyaline Casts None Seen per lpf (None-Few) 12/20/17 06:00 Ur Culture Indicated? NO. (NO) A 12/20/17 06:00 Salicylates < 2.5 mg/dL (15.0-30.0) L 12/20/17 05:08 Urine Opiates Screen Negative ng/mL (Tchhtc=800) 12/20/17 06:00 Acetaminophen < 10 mcg/mL (10-20) L 12/20/17 05:08 Ur Barbiturates Screen Negative ng/mL (Iamwyl=156) 12/20/17 06:00 Ur Phencyclidine Scrn Negative ng/mL (Cutoff=25) 12/20/17 06:00 Ur Amphetamines Screen Negative ng/mL (Ceiaiq=9681) 12/20/17 06:00 U Benzodiazepines Scrn Negative ng/mL (Vxcwla=777) 12/20/17 06:00 Urine Cocaine Screen Negative ng/mL (Cutoff= 300) 12/20/17 06:00 U Marijuana (THC) Screen Negative ng/mL (Cutoff = 50) 12/20/17 06:00 Ur Drug Screen Interp See Below 12/20/17 06:00 Ethyl Alcohol < 10 mg/dL (Less than 10) 12/20/17 05:08 Consult Discharge Plan - Plan Referrals: Rajiv Nichols Jr, [employer] [Primary Care Provider] -
--- NOTE | 2017-12-20 12:35 | Neurology - Consult Note ---
Date of Encounter: 12/20/17 Time of Encounter: 12:33 Assessment and Plan (1) Altered mental status Current Visit: Yes Status: Acute Characterized by acute suicidal ideation and psychosis without focal neurological findings. She has no fever no headaches, no neck pain, no nuchal rigidity and clinical picture not consistent with meningitis/encephalitis but agree at this time that she is to be covered with antiviral/antibacterial therapy while MRI of brain, and LP via floruo guidance can be completed. Will obtain a routine EEG tomorrow morning to make sure that she does not have partial status epilepticus. Please continue medical/psychitric and supportive care Total time spend on this case is approximately 55 minutes. Qualifiers: Altered mental status type: delirium Qualified Code(s): R41.0 - Disorientation, unspecified History of Present Illness Chief complaint: acute psychosis and altered mental status HPI: Ms. Akbar is a 47 year old female with PMH significant for tachycardia, unspecified, history of POTS, colitis who developed acute onset of altered mental status, behavioral changes in the last few days to a week. She was seen in the ER one weeks ago and was found to have hypotension and was hydrated and discharged home. Per her daughter in law over the last few days he mental status deteriorated characterized by abnormal behavior, suicidal ideation, not recognizing her family members, echocolia and repetitive stereotypical movements resembling catatonia, and i also noticed bilateral leg cycling movements this morning. She had complained headache yesterday morning and one single tylenolol was given and she has not complained headache since then. She vomited on last Thursday and not any more since. CT of head was read as normal. No similar psychiatric history in the past. Does have medical diagnosis of tachycardia and saw her PCP last year who recommended aggressiv hydration. Does have POTS syndrome listed as one of her medical conditions. She has no fever. Attempted LP but unsuccessful. Currently, patient was given Haldol. She is awake but kept her eye closed. She opens her eyes intermittently and briskly so she appears wide awake but vigilant. No nuchal rigidity. No Kernig sign. Once touching her leg, she started cycling movements but easily stopped by calming her down and she went back quiet and keeps her eyes closed. Past Med Surg Social Fam HX - Past Medical History Medical history: other (Chronic active colitis) Additional medical history: POTS, colitis Psychiatric history: no psych history - Past Surgical History Surgical History: , hysterectomy, other Additional surgical history: TONSILS,SINUS - Social History Smoking Status: Never smoker Smokeless Tobacco Status: No Alcohol use: none Drug use: none - Family History Father Hx Family Endocrine Disorder: Yes (DM) Mother Living Status: Hx Family Respiratory Disorders: Yes Medications and Allergies Atenolol 100 mg PO DAILY 12/20/17 [History] Ciprofloxacin [Cipro] 500 mg PO BID 12/20/17 [History] Dicyclomine [Bentyl] 10 mg PO QID 12/20/17 [History] Meloxicam [Mobic] 7.5 mg PO DAILY 12/20/17 [History] Omeprazole [PriLOSEC] 20 mg PO DAILY 12/20/17 [History] metroNIDAZOLE [Metronidazole] 500 mg PO DAILY 12/20/17 [History] 3 Allergy/AdvReac Type Severity Reaction Status Date / Time codeine Allergy See Verified 11/30/16 11:42 Comments meloxicam Allergy See Verified 11/30/16 11:42 Comments All Systems: The remainder of the systems were reviewed and are negative Physical Examination - Vital Signs Vital Signs: Initial Vital Signs Temp Pulse Resp BP Pulse Ox 98.8 F 163 18 143/98 97 12/20/17 04:51 12/20/17 04:51 12/20/17 04:51 12/20/17 04:51 12/20/17 04:51 - Constitutional General appearance: comfortable - Neurologic Sensorimotor examination: other (Unable to assess due to altered behavior) Detailed motor examination: other (No gross weakness noted. Patient is able to cycle her legs when lying in bed. Arms flaccid and not following commands) Detailed sensory examination: other (Unable to assess) Posture: other (None. No nuchal rigidity) Reflex and gait examination: other (Gait not assessed.) Reflexes: Biceps: 0, Triceps: 0, Brachioradialis: 0, Patella: 0, Achilles: 0 Mental Status Examination: awake (As mentioned above the patient appears vigilant but not talking. She keeps her eyes closed but intermittently she would open her eyes briskly. She would look her daughter in law and then grab her hand, as if she is looking for sense of security and comforts ), alert, does not follow commands, opens eyes to voice, makes eye contact Cranial nerve examination: PERRL (5-6mm in sizes equall and reactive. ), EOMI ( Appears full movements), visual leger intact (Unable to assess), corneal reflexes brisk symmetrically (yes), sensory to face intact (unable to assess), mastication intact, no facial asymmetry is present, no dysarthria (Unable to assess), hearing is intact symmetrically, tongue protrudes midline (Unable to assess) Results - Laboratory Findings CBC and BMP: 12/20/17 05:08 12/20/17 05:08 Abnormal lab findings: Abnormal lab results WBC 13.7 K/mcL (4.3-11.1) H 12/20/17 05:08 Plt Count 506 K/mcL (140-400) H 12/20/17 05:08 Neutrophils # 11.1 K/mcL (1.6-8.9) H 12/20/17 05:08 PT 15.0 Seconds (9.4-12.1) H 12/20/17 05:08 Carboxyhemoglobin 6.0 % (0-5) H 12/20/17 05:08 Carbon Dioxide 19 mEq/L (23-29) L 12/20/17 05:08 Glucose 161 mg/dL (70-105) H 12/20/17 05:08 AST 12 Units/L (13-39) L 12/20/17 05:08 Creatine Kinase 13 Units/L (30-223) L 12/20/17 05:08 Albumin 3.3 g/dL (3.5-5.7) L 12/20/17 05:08 Albumin/Globulin Ratio 1.0 (1.1-2.2) L 12/20/17 05:08 Urine Clarity Cloudy (Clear) A 12/20/17 06:00 Urine Ketones 40 mg/dL (Negative) H 12/20/17 06:00 Urine Bilirubin Small (Negative) H 12/20/17 06:00 Ur Leukocyte Esterase Small (Negative) H 12/20/17 06:00 Urine Microscopic WBC 5-15 per hpf (0-3) H 12/20/17 06:00 Ur Squamous Epith Cells Many per lpf (None-Few) H 12/20/17 06:00 Ur Culture Indicated? NO. (NO) A 12/20/17 06:00 Salicylates < 2.5 mg/dL (15.0-30.0) L 12/20/17 05:08 Acetaminophen < 10 mcg/mL (10-20) L 12/20/17 05:08 Consult Discharge Plan - Plan Referrals: Rajiv Nichols Jr, [employer] [Primary Care Provider] -
[2017-12-20] MEDS ORDERED: MetroNIDAZOLE 500 MG/100 ML 500 MG/100 ML BAG IVPB SCH (16:00)
[2017-12-20] MEDS: Acyclovir 500 MG in D5% in Water 250 ML IVPB SCH ×2 (16:48→23:50)
[2017-12-20] MEDS ORDERED: 0.9 % Sodium Chloride 500 ML IVC ONE (16:50)
[2017-12-20] MEDS: cefTRIAXone 2,000 MG in 0.9 % Sodium Chloride Mini Bag 100 ML IVPB SCH (20:00)
[2017-12-20] MEDS: MetroNIDAZOLE 500 MG/100 ML 500 MG/100 ML BAG IVPB SCH (20:03)
[2017-12-21] MEDS: cefTRIAXone 2,000 MG in 0.9 % Sodium Chloride Mini Bag 100 ML IVPB SCH ×2 (05:00→17:26)
[2017-12-21] MEDS: MetroNIDAZOLE 500 MG/100 ML 500 MG/100 ML BAG IVPB SCH ×3 (05:06→20:58)
[2017-12-21 05:15] LABS: Basophils % 0.5 %; Eosinophils # 0.2 K/mcL (0.0-0.6); Eosinophils % 3.2 %; Hematocrit 33.1 % (35.3-44.9); Immature Granulocytes % 0.8 % (0-4); Lymphocytes # 1.4 K/mcL (0.6-4.6); Lymphocytes % 20.4 %; Mean Corpuscular HGB Conc 33.2 g/dL (31.6-35.5); Mean Corpuscular Hemoglobin 29.8 pg (28.0-33.3); Mean Corpuscular Volume 89.7 fL (83.0-100.0); Monocytes # 0.5 K/mcL (0.0-1.3); Monocytes % 7.8 %; Neutrophils # 4.5 K/mcL (1.6-8.9); Platelet Count 374 K/mcL (140-400); Red Blood Count 3.69 M/mcL (3.82-4.97); Red Cell Distribution Width 13.2 % (11.5-14.5); Segmented Neutrophils % 67.3 %
[2017-12-21 05:37] LABS: BUN/Creatinine Ratio 8 (6-26); Blood Urea Nitrogen 6 mg/dL (6-20); Calcium 7.6 mg/dL (8.6-10.3); Carbon Dioxide 23 mEq/L (23-29); Chloride 109 mEq/L (98-107); Glucose 102 mg/dL (70-105); Osmolality,Calculated 282 (280-300); Potassium 3.6 mEq/L (3.5-5.1); Sodium 137 mEq/L (136-145); eGFR For Non-African Americans > 60 (> 60)
[2017-12-21] MEDS: Acetaminophen 325 MG TABLET PO PRN (08:59)
[2017-12-21] MEDS: Acyclovir 500 MG in D5% in Water 250 ML IVPB SCH ×2 (09:05→17:58)
[2017-12-21] MEDS: 0.9 % Sodium Chloride 1,000 ML IVC SCH ×2 (12:17→22:30)
[2017-12-21] MEDS ORDERED: Aminoglycoside Consult 1 EACH MC ONE (12:41)
--- NOTE | 2017-12-21 13:33 | Neurology Progress Note ---
Date of Encounter: 12/21/17 Time of Encounter: 13:31 Assessment and Plan (1) Altered mental status Current Visit: Yes Status: Acute Resolved. Patient started improve last night and by the time this morning she is able to carry conversation. At this time she has nonfocal neurological examination and her mental status is intact now. MR of brain showed no acute intracranial abnormality. 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 Do not think LP is needed at this time. Will suggest completing antiviral therapy by mouth. Follow up with psychiatry may be beneficial at psychiatry's discretion. Please continue medical and supportive. Will sign off at this time, please call if any questions Qualifiers: Altered mental status type: delirium Qualified Code(s): R41.0 - Disorientation, unspecified Subjective Principal diagnosis: acute psychosis and mental status changes Interval history: Patient seen and examined. She is doing much better and is smiling and no longer have abnormal movements. Per nursing staff the patient started coming around last night at around 7pm and this morning she woke up and was able to carry conversation with her son. she is able to ambulate with no difficulty earlier today. No headaches, no discomforts reported Objective - Constitutional Vitals: Temp Pulse Resp BP Pulse Ox 97.9 F 78 16 110/58 98 12/21/17 06:52 12/21/17 11:00 12/21/17 11:00 12/21/17 11:00 12/21/17 06:52 - Neurological Exam Sensorimotor examination: Present: intact Motor Examination: Present: grossly full strength in all extremities Motor examination - right side: 5/5: deltoids, biceps, triceps, wrist flexion, wrist extension, devulcanizer tender, hip flexors, tibialis Anterior, quadriceps, toe extension (EHL), plantarflexion Motor examination - left side: 5/5: deltoids, biceps, triceps, wrist flexion, wrist extension, hip flexors, devulcanizer tender, quadriceps, tibialis Anterior, toe extension (EHL), plantarflexion Sensation intact: Present: intact Posture: Present: other (None) Reflex and gait examination: intact Reflexes: Biceps: 2+, Triceps: 2+, Brachioradialis: 2+, Patella: 2+, Achilles: 2 + Mental Status Examination: Present: alert, oriented to person, oriented to place , oriented to time, follows commands appropriately, answers questions appropriately, no agnosia, no aphasia, no aproxia, opens eyes to voice, makes eye contact Cranial nerve examination: Present: PERRL, EOMI, visual leger intact, corneal reflexes brisk symmetrically, sensory to face intact, mastication intact, no facial asymmetry is present, no dysarthria, hearing is intact symmetrically, soft palate elevates bilaterally upon phonation, gag reflex intact, flexes SCM and trapezius muscles symmetrically with full power, tongue protrudes midline Cerebellar examination: Present: no dysmetria - VTE Documentation of Mechanical Device: Intermittent pneumatic compression device Results - Laboratory Findings CBC and BMP: 12/21/17 04:36 12/21/17 04:36 Abnormal lab findings: Abnormal lab results RBC 3.69 M/mcL (3.82-4.97) L 12/21/17 04:36 Hgb 11.0 g/dL (11.5-15.4) L D 12/21/17 04:36 Hct 33.1 % (35.3-44.9) L 12/21/17 04:36 PT 15.0 Seconds (9.4-12.1) H 12/20/17 05:08 Carboxyhemoglobin 6.0 % (0-5) H 12/20/17 05:08 Chloride 109 mEq/L (98-107) H 12/21/17 04:36 POC Glucose 143 mg/dL (70-99) H 12/20/17 09:18 Calcium 7.6 mg/dL (8.6-10.3) L 12/21/17 04:36 AST 12 Units/L (13-39) L 12/20/17 05:08 Creatine Kinase 13 Units/L (30-223) L 12/20/17 05:08 Albumin 3.3 g/dL (3.5-5.7) L 12/20/17 05:08 Albumin/Globulin Ratio 1.0 (1.1-2.2) L 12/20/17 05:08 Urine Clarity Cloudy (Clear) A 12/20/17 06:00 Urine Ketones 40 mg/dL (Negative) H 12/20/17 06:00 Urine Bilirubin Small (Negative) H 12/20/17 06:00 Ur Leukocyte Esterase Small (Negative) H 12/20/17 06:00 Urine Microscopic WBC 5-15 per hpf (0-3) H 12/20/17 06:00 Ur Squamous Epith Cells Many per lpf (None-Few) H 12/20/17 06:00 Ur Culture Indicated? NO. (NO) A 12/20/17 06:00 Salicylates < 2.5 mg/dL (15.0-30.0) L 12/20/17 05:08 Acetaminophen < 10 mcg/mL (10-20) L 12/20/17 05:08 Consult Discharge Plan - Plan Referrals: Rajiv Nichols Jr, AGENT PRODUCER [Primary Care Provider] -
--- NOTE | 2017-12-21 16:07 | Consult Note ---
Date of Encounter: 12/21/17 Time of Encounter: 15:15 Assessment & Recommendation (1) Delirium due to general medical condition Current visit: Yes Status: Acute History of Present Illness Patient: known to practice within the last 3 years Requesting Physician: Shahnaz Wilks MD Reason for consult: f/u of catatonia History of present illness: Ms. Akbar is a 47 year old female The patient is a 47-year-old white female. She was able to give me a good history. Chief complaint I was out of my head yesterday. History of present illness. The patient is able to recall some of the events that occurred. She was at her son's house she was feeling sick she came to the emergency room from then she cannot recall exactly what happened but she knew that she was not giving the right responses to questions and not interacting with others the way she would have. Today she feels that she is back to her baseline she recognizes that she has had colitis. Nonetheless patient has no return of catatonia echolalia or other features. The neurology workup has been essentially negative to this point CC: Shahnaz Wilks MD Past Med Surg Social Fam HX - Past Medical History Medical history: other (Chronic active colitis) - Past Surgical History Surgical History: , hysterectomy, other - Social History Smoking Status: Never smoker Smokeless Tobacco Status: No Alcohol use: none Drug use: none - Family History Father Hx Family Endocrine Disorder: Yes (DM) Mother Living Status: Hx Family Respiratory Disorders: Yes Medications & Allergies Atenolol 100 mg PO DAILY 12/20/17 [History] Ciprofloxacin [Cipro] 500 mg PO BID 12/20/17 [History] Dicyclomine [Bentyl] 10 mg PO QID 12/20/17 [History] Meloxicam [Mobic] 7.5 mg PO DAILY 12/20/17 [History] Omeprazole [PriLOSEC] 20 mg PO DAILY 12/20/17 [History] metroNIDAZOLE [Metronidazole] 500 mg PO DAILY 12/20/17 [History] 3 Allergy/AdvReac Type Severity Reaction Status Date / Time codeine Allergy See Verified 11/30/16 11:42 Comments meloxicam Allergy See Verified 11/30/16 11:42 Comments Review of Systems Psychiatric: Reports: confusion, difficulty concentrating Psychiatry Exam - Constitutional Vitals: Temp Pulse Resp BP Pulse Ox 97.9 F 78 16 110/58 98 12/21/17 06:52 12/21/17 11:00 12/21/17 11:00 12/21/17 11:00 12/21/17 06:52 General appearance: age & developmentally appropriate, well-groomed, well- nourished - Musculoskeletal Gait: normal Station: relaxed Strength & Tone: normal for patient - Psychiatric Patient Orientation: Yes Person, Yes Time, Yes Place Level of alertness: Alert Behavior: calm, cooperative Psychomotor activity: Normal Eye Contact: Maintains Eye Contact Mood Description: Euthymic/stable Affect description: congruent with mood, full range Speech Volume: Normal Speech pattern: normal rate, normal rhythm, normal tone, fluent, spontaneous Language & Vocabulary: consistent with education Thought Process: Linear, Goal Oriented Thought Content: No Suicidal ideation, No Homicidal ideation, No Overt delusions Perceptual Disturbances: No Auditory hallucinations, No Visual hallucinations Attention Span Ability: Capable of Focused Attention Memory Description: Grossly Intact Patient Reliability: Reliable Historian Fund of knowledge: Yes abstraction ability, Yes aware of current events Intelligence Estimate: Average Judgment: Fair Insight: Partial Results - Labs Labs: Laboratory Last Values WBC 6.7 K/mcL (4.3-11.1) D 12/21/17 04:36 RBC 3.69 M/mcL (3.82-4.97) L 12/21/17 04:36 Hgb 11.0 g/dL (11.5-15.4) L D 12/21/17 04:36 Hct 33.1 % (35.3-44.9) L 12/21/17 04:36 MCV 89.7 fL (83.0-100.0) 12/21/17 04:36 MCH 29.8 pg (28.0-33.3) 12/21/17 04:36 MCHC 33.2 g/dL (31.6-35.5) 12/21/17 04:36 RDW 13.2 % (11.5-14.5) 12/21/17 04:36 Plt Count 374 K/mcL (140-400) 12/21/17 04:36 MPV 10.0 fL (9.4-12.4) 12/21/17 04:36 Immature Gran % 0.8 % (0-4) 12/21/17 04:36 Seg Neutrophils % 67.3 % 12/21/17 04:36 Lymphocytes % 20.4 % 12/21/17 04:36 Monocytes % 7.8 % 12/21/17 04:36 Eosinophils % 3.2 % 12/21/17 04:36 Basophils % 0.5 % 12/21/17 04:36 Neutrophils # 4.5 K/mcL (1.6-8.9) 12/21/17 04:36 Lymphocytes # 1.4 K/mcL (0.6-4.6) 12/21/17 04:36 Monocytes # 0.5 K/mcL (0.0-1.3) 12/21/17 04:36 Eosinophils # 0.2 K/mcL (0.0-0.6) 12/21/17 04:36 Basophils # 0.0 K/mcL (0.0-0.2) 12/21/17 04:36 PT 15.0 Seconds (9.4-12.1) H 12/20/17 05:08 INR 1.3 12/20/17 05:08 APTT 26.0 Seconds (26.0-36.0) 12/20/17 05:08 Carboxyhemoglobin 6.0 % (0-5) H 12/20/17 05:08 Sodium 137 mEq/L (136-145) 12/21/17 04:36 Potassium 3.6 mEq/L (3.5-5.1) 12/21/17 04:36 Chloride 109 mEq/L (98-107) H 12/21/17 04:36 Carbon Dioxide 23 mEq/L (23-29) 12/21/17 04:36 BUN 6 mg/dL (6-20) 12/21/17 04:36 Creatinine 0.80 mg/dL (0.60-1.20) 12/21/17 04:36 Est GFR ( Amer) > 60 (> 60) 12/21/17 04:36 Est GFR (Non-Af Amer) > 60 (> 60) 12/21/17 04:36 BUN/Creatinine Ratio 8 (6-26) 12/21/17 04:36 Glucose 102 mg/dL (70-105) 12/21/17 04:36 POC Glucose 143 mg/dL (70-99) H 12/20/17 09:18 Calculated Osmolality 282 (280-300) 12/21/17 04:36 Lactic Acid 1.3 mmol/L (0.5-2.2) 12/20/17 09:16 Calcium 7.6 mg/dL (8.6-10.3) L 12/21/17 04:36 Total Bilirubin 0.4 mg/dL (0.3-1.0) 12/20/17 05:08 Direct Bilirubin 0.1 mg/dL (0.0-0.2) 12/20/17 05:08 Indirect Bilirubin 0.3 mg/dL (0.0-1.2) 12/20/17 05:08 AST 12 Units/L (13-39) L 12/20/17 05:08 ALT 14 Units/L (7-52) 12/20/17 05:08 Alkaline Phosphatase 67 Units/L (34-104) 12/20/17 05:08 Ammonia 22 mcmol/L (16-53) 12/20/17 05:46 Creatine Kinase 13 Units/L (30-223) L 12/20/17 05:08 Troponin I < 0.03 ng/mL (< 0.04) 12/20/17 05:08 Serum Total Protein 6.5 g/dL (6.4-8.9) 12/20/17 05:08 Albumin 3.3 g/dL (3.5-5.7) L 12/20/17 05:08 Globulin 3.2 g/dL (2.4-3.5) 12/20/17 05:08 Albumin/Globulin Ratio 1.0 (1.1-2.2) L 12/20/17 05:08 TSH 1.662 mcIU/mL (0.340-5.600) 12/20/17 05:08 Urine Color Dark Yellow (Yellow) 12/20/17 06:00 Urine Clarity Cloudy (Clear) A 12/20/17 06:00 Urine pH 5.0 pH Units (5.0-8.0) 12/20/17 06:00 Ur Specific [place] 1.024 (1.010-1.025) 12/20/17 06:00 Urine Protein Trace mg/dL (Neg-Trace) 12/20/17 06:00 Urine Glucose (UA) Normal mg/dL (Normal) 12/20/17 06:00 Urine Ketones 40 mg/dL (Negative) H 12/20/17 06:00 Urine Blood Negative (Negative) 12/20/17 06:00 Urine Nitrite Negative (Negative) 12/20/17 06:00 Urine Bilirubin Small (Negative) H 12/20/17 06:00 Urine Urobilinogen Normal mg/dL (Normal) 12/20/17 06:00 Ur Leukocyte Esterase Small (Negative) H 12/20/17 06:00 Urine Microscopic RBC 0-3 per hpf (0-3) 12/20/17 06:00 Urine Microscopic WBC 5-15 per hpf (0-3) H 12/20/17 06:00 Ur Squamous Epith Cells Many per lpf (None-Few) H 12/20/17 06:00 Urine Bacteria None Seen per hpf (None-Few) 12/20/17 06:00 Hyaline Casts None Seen per lpf (None-Few) 12/20/17 06:00 Ur Culture Indicated? NO. (NO) A 12/20/17 06:00 Salicylates < 2.5 mg/dL (15.0-30.0) L 12/20/17 05:08 Urine Opiates Screen Negative ng/mL (Tmjlbm=488) 12/20/17 06:00 Acetaminophen < 10 mcg/mL (10-20) L 12/20/17 05:08 Ur Barbiturates Screen Negative ng/mL (Qczhpt=582) 12/20/17 06:00 Ur Phencyclidine Scrn Negative ng/mL (Cutoff=25) 12/20/17 06:00 Ur Amphetamines Screen Negative ng/mL (Brxcxo=5334) 12/20/17 06:00 U Benzodiazepines Scrn Negative ng/mL (Pskuxl=255) 12/20/17 06:00 Urine Cocaine Screen Negative ng/mL (Cutoff= 300) 12/20/17 06:00 U Marijuana (THC) Screen Negative ng/mL (Cutoff = 50) 12/20/17 06:00 Ur Drug Screen Interp See Below 12/20/17 06:00 Ethyl Alcohol < 10 mg/dL (Less than 10) 12/20/17 05:08 T.pallidum Ab Interpret Negative (NEGATIVE) 12/20/17 05:08 Lyme Total Antibody Negative (Negative) 12/20/17 05:46 - Impressions Impressions Brain MRI 12/21/17 11:56 IMPRESSION: No acute intracranial abnormality. Unremarkable MRI of the brain without contrast. D/ / Sarah Sosa MD / Sarah Sosa MD Interpreting Provider: Sarah Sosa MD Consult Discharge Plan - Plan Referrals: Rajiv Nichols Jr, LMSW [Primary Care Provider] -
--- NOTE | 2017-12-21 16:34 | Internal Med Progress Note ---
Hospitalist Progress Note - Encounter Date of Encounter: 12/21/17 Time of Encounter: 16:30 - Subjective Interval History: Pt know where she is, who she is, . She denies fever, chills, N/V, or diarrhea. Denies CP or SOB. - Exam Vitals: Temp Pulse Resp BP Pulse Ox 97.9 F 98 16 104/69 98 12/21/17 06:52 12/21/17 16:25 12/21/17 11:00 12/21/17 16:25 12/21/17 06:52 Exam: Physical exam: General: Patient in NAD. VS: WNL HEENT: NC/AT. PERRLA, EOMI. No cervical LAD, no thyromegaly, no bruit, no pallor , fundus WNL, oropharynx WNL, tympanic membrane WNL, neck supple Resp: CTA bilat" Chest expansion test, normal breathing with little effort, absence of wheezing, rhonchi and crackles CV: "+S1, +S2, RRR, no m/r/g Abd: Nontender, soft, non-distended, abscence of pain and no hepatosplenomegaly , NBS. Extremity: No clubbin, cyanosis, or edema Neuro: A&Ox3, CN II-XII grossly intact, Sensation intact in all four extremities (dull and sharp), DTR 2+ bilat, Romberg negative, cerebellar reflexes WNL, normal gait. Skin: Warm dry, no rash, bumps, or brusies. - Assessment and Plan (1) Delirium Current Visit: Yes Status: Acute Assessment and Plan: Delirium completely resolved. Unclear the etiology. TSH 1.662. UA does not appear to show infectious process. Non-contrast CT head neg. Pt has been evaluated by neurology and psych. EEG added today if neg will likely discharge in am. (2) Acute metabolic encephalopathy Current Visit: Yes Status: Suspected Assessment and Plan: Of unclear etiology. Toxicology screen negative. Wok up so far essentially negative. Lumbar puncture attempted but unsuccessful. Patient being treated for possible encephalitis/meningitis. IR consulted to try LP again. Pt is on multiple medications Rocephin, Vancomycin , Flagyl, and Acyclovir. Pt is back at her baseline. (3) Tachycardia Current Visit: Yes Status: Acute Assessment and Plan: Resolved. Pt is back on Atenolol and given IVF hydration. (4) Suicidal ideation Current Visit: Yes Status: Acute Assessment and Plan: No prior documented hx of depression. Pt apparently threatened suicide 2017. Will continue with 17/11 sitter for now. Pt evaluated by psych. (5) Colitis Current Visit: Yes Status: Acute Assessment and Plan: Chronic colitis. f/u out with GI as nash. - Time Spent with Patient Total time spent is greater than 50% in coordination of care (as documented) at patient's floor/unit and/or counseling patient: less than 15 minutes Internal Medicine: Result - Labs CBC & Chem 7: 12/21/17 04:36 12/21/17 04:36 Labs: Short CBC 12/21/17 Range/Units 04:36 WBC 6.7 D (4.3-11.1) K/mcL Hgb 11.0 L D (11.5-15.4) g/dL Hct 33.1 L (35.3-44.9) % Plt Count 374 (140-400) K/mcL Neutrophils # 4.5 (1.6-8.9) K/mcL BMP 12/21/17 04:36 Sodium 137 Potassium 3.6 Chloride 109 H Carbon Dioxide 23 BUN 6 Creatinine 0.80 Glucose 102 Calcium 7.6 L - ABG Interpretation ABG results: PT/INR, D-dimer PT 15.0 Seconds (9.4-12.1) H 12/20/17 05:08 - Impressions Impressions Brain MRI 12/21/17 11:56 IMPRESSION: No acute intracranial abnormality. Unremarkable MRI of the brain without contrast. D/ / Sarah Sosa MD / Sarah Sosa MD Interpreting Provider: Sarah Sosa MD - VTE Documentation of Mechanical Device: Intermittent pneumatic compression device Consult Discharge Plan - Plan Additional Instructions: Possible DC in am once EEG negative Referrals: Rajiv Nichols Jr, [employer] [Primary Care Provider] -
--- NOTE | 2017-12-21 18:27 | Electrocardiograph Report ---
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
--- NOTE | 2017-12-21 22:50 | EEG/EMG/Oth Biometrics Report ---
EEG Procedure Report Date of procedure: 12/21/17 EEG Procedure: Routine EEG Procedure Note: Report: This EEG was acquired with standard international 10-20 electrode placement system with EKG recording. The Background activity during this EEG was characterized by the presence of posterior dominant alpha rhythm with best frequency up to 11 Hz. The background activity was reactive to eye openings. Sleep stages were characterized by the presence of background fragmentation, vertex waves, K-complexes and sleep spindles. There are no electrographic seizures identified during this tracing. There are no epileptiform discharges and focal slowing noted during this recording. Photic stimulation produced no abnormalities.. EKG tracing showed no significant cardiac dysarrhythmia. Impression: This is a normal awake and asleep EEG. Clinical Correlation: Normal EEGs, however, do not exclude epilepsy. Clinical correlation required.
[2017-12-22] MEDS: 0.9 % Sodium Chloride 1,000 ML IVC SCH ×2 (00:15→00:19)
[2017-12-22] MEDS: Acyclovir 500 MG in D5% in Water 250 ML IVPB SCH (01:42)
[2017-12-22] MEDS: MetroNIDAZOLE 500 MG/100 ML 500 MG/100 ML BAG IVPB SCH (04:44)
[2017-12-22] MEDS: cefTRIAXone 2,000 MG in 0.9 % Sodium Chloride Mini Bag 100 ML IVPB SCH (05:59)
[2017-12-22] MEDS: Acetaminophen 325 MG TABLET PO PRN (06:21)
[2017-12-22 08:20] VITALS: BP 128/84
--- NOTE | 2017-12-22 09:35 | Discharge Summary ---
Orders not resulted at time of discharge: Pending orders 12/20/17 08:53 XR guided lumbar puncture [XR] Routine Date of Encounter: 12/22/17 Time of Encounter: 09:30 - Discharge Diagnosis (1) Acute metabolic encephalopathy Priority: Primary Status: Suspected Assessment and Plan: 47 year old female patient with history of hypertension, recurrent bouts of colitis who presented to the ER with complaints of altered mental status and behavioral changes that are uncharacteristic for her. These have been going on since Thursday. She had been seen in the ER and then and was diagnosed with colitis and discharged home. However when she got home when her physical symptoms improved, she continued to decline mentally with decreased memory, not recognizing people around her and not able to carry out conversations. She has never had these symptoms in the past. According to her family was present at the bedside and provided most of the history, patient has had a recent significant stressful event in her life. She was assessed with acute metabolic encephalopathy of unclear etiology and nuerology and psych were consulted. She had an extensive workup with a CT and MRI of the head which did not show any abnormality. Chest xray was also negative for any acute infectious process. Lumbar puncture was attempted but unsuccessful. She also had an EEG done which came back negative. She was started on a course of broad spectrum antibiotics for possible meningitis/ encephalitis/ sepsis with vancomycin, zosyn, ceftriaxone and acyclovir. TSH also came back WNL. With supportive care, her mental status gradually improved. She was seen by psychiatry who deemed her acute encephalopathy likely catatonia due to an acute medical condition which has resolved and they signed off with no further intervention recommended. She was also followed by neuro who recommended completing a 7 day course of acyclovir for possible encephalitis, once her tests came back all negative. (2) Delirium Priority: Primary Status: Acute (3) Colitis Priority: Secondary Status: Acute (4) Tachycardia Priority: Secondary Status: Acute (5) Suicidal ideation Priority: Secondary Status: Acute Hospital course: Ms. Akbar is a 47 year old female - Time Spent with Patient Total time spent providing and/or coordinating discharge services: - Discharge Medications Prescriptions: Acyclovir [Zovirax] 400 mg PO TID 7 Days #21 capsule Home Medications: Atenolol 100 mg PO DAILY 12/20/17 [History] Ciprofloxacin [Cipro] 500 mg PO BID 12/20/17 [History] Dicyclomine [Bentyl] 10 mg PO QID 12/20/17 [History] Meloxicam [Mobic] 7.5 mg PO DAILY 12/20/17 [History] Omeprazole [PriLOSEC] 20 mg PO DAILY 12/20/17 [History] metroNIDAZOLE [Metronidazole] 500 mg PO DAILY 12/20/17 [History] Acyclovir [Zovirax] 400 mg PO TID 7 Days #21 capsule 12/22/17 [Rx] Allergies/Adverse Reactions: 3 Allergy/AdvReac Type Severity Reaction Status Date / Time codeine Allergy See Verified 11/30/16 11:42 Comments meloxicam Allergy See Verified 11/30/16 11:42 Comments Date of admission: 12/20/17 07:59 Primary care physician: Rajiv Nichols Jr, CNP Consults: 12/20/17 08:53 Consult to Interventional Radiology [CONS] Routine Consulting Provider: Radiology Interventional Cols Reason for Consult: AMS/ Concern for meningtitis Time Notified: 08:54 Call Completed: Yes 12/20/17 11:03 Consult to Neurology [CONS] Routine Consulting Provider: [facility] Reason for Consult: AMS/ Behavioral symptoms Time Notified: 11:03 Call Completed: Yes 12/20/17 11:20 Consult to Psychiatry [CONS] Routine Consulting Provider: Psychiatry [facility] Reason consult: Altered mental status [place] slip on chart Other reason and/or additional details: Suicidal ideation/ paranoia, [place] Slip initiated date and time: 1120 AM 12/20/17 Time Notified: 11:21 Call Completed: Yes 12/21/17 14:32 Consult to Interpret Exam [CONS] Routine Consulting Provider: Leon Jensen Consult to Interpret Exam: Interpret EEG - Constitutional Vitals: Temp Pulse Resp BP Pulse Ox 97.4 F L 118 12 128/84 95 12/22/17 06:14 12/22/17 06:14 12/22/17 06:14 12/22/17 08:20 12/22/17 06:14 General appearance: Present: A&O X 1. Absent: answers questions appropriately Exam: Physical exam: General: Patient in NAD. VS: WNL HEENT: NC/AT. PERRLA, EOMI. No cervical LAD, no thyromegaly, no bruit, no pallor , fundus WNL, oropharynx WNL, tympanic membrane WNL, neck supple Resp: CTA bilat" Chest expansion test, normal breathing with little effort, absence of wheezing, rhonchi and crackles CV: "+S1, +S2, RRR, no m/r/g Abd: Nontender, soft, non-distended, abscence of pain and no hepatosplenomegaly , NBS. Extremity: No clubbin, cyanosis, or edema Neuro: A&Ox3, CN II-XII grossly intact, Sensation intact in all four extremities (dull and sharp), DTR 2+ bilat, Romberg negative, cerebellar reflexes WNL, normal gait. Skin: Warm dry, no rash, bumps, or brusies. - Head Head exam: Present: atraumatic, normocephalic - Eye Eye exam: Present: PERRL, conjuntiva pink, sclera anicteric Pupils: Present: PERRL - Neck Neck exam general surgery: Present: supple, trachea midline. Absent: lymphadenopathy - Respiratory Respiratory exam: Present: CTAB. Absent: accessory muscle use, rales, rhonchi, wheezes - Cardiovascular Cardiovascular exam: Present: RRR, +S1, +S2. Absent: diastolic murmur, gallop, rubs, systolic murmur - GI/Abdominal GI/Abdominal exam: Present: normal bowel sounds, soft, no peritoneal signs. Absent: distended, tenderness - Extremities Exam Extremities exam: Present: warm, radial pulses palpable and symmetrical. Absent : calf tenderness, cyanotic, pedal edema - Neurological Exam Neurological exam: Present: CN II-XII intact, oriented X3, no focal deficits. Absent: pronater drift, facial droop, speech deficit - Skin Skin exam: Present: dry, intact - Patient Status Disposition: Home, Self-Care Condition: Fair - Discharge Instructions Instructions: Acyclovir (By mouth) Follow Up With: Rajiv Nichols Jr, CNP [Primary Care Provider] - 12/31/17 9:30 am Forms: Work/School Release Additional Instructions: Possible DC in am once EEG negative - VTE Documentation of Mechanical Device: Intermittent pneumatic compression device
--- NOTE | 2017-12-23 07:57 | Electrocardiograph Report ---
[address] [place], [place] [address] Test Date: 2017-12-21 Pat Name: Peggy Akbar Department: 111 Room: 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
[2017-12-23 10:58] LABS: Herpes Simplex PCR Qual Res NOT DETECTED
== END 2017-12-22 12:42 | disposition home or self-care (01) ==
LOC: EMEROOARM 04:45 → 2NENU 04:45 → SUATTDRO 07:59 → 2NENU 08:44
PROVIDERS: ADMIT Internal Medicine; ATTEND Student in an Organized Health Care Education/Training Program